=== PATIENT | female | born 1965 | race Caucasian/White ===

== ENCOUNTER 2024-10-08 10:13 | Outpatient (REF) | payer BC, SELFPAY ==
--- OUTSIDE RECORDS SUMMARY | 2024-10-08 11:17 | XMS_ITS | Continuity of Care Document ---
Author Organization [facility] Address [address] [place] [address] [address] [place], [place] Phone [phone] Care Team Providers Care Tubing Machine Tender Name Role Phone Janell Wood Care Team [...]
== END 2024-10-08 10:14 | disposition home or self-care (01) ==
LOC: HO.HOSX 10:13
PROVIDERS: Visit Provider Neurological Surgery
DX: M54.16 Radiculopathy, lumbar region (principal)
CPT/HCPCS: 72110

== ENCOUNTER 2024-10-08 10:13 | Outpatient (AMB) | payer BC, SELFPAY ==
--- OUTSIDE RECORDS SUMMARY | 2024-10-08 10:15 | XMS_ITS | Continuity of Care Document ---
Author Organization [facility] Address [address] [place] [address] [address] [place], [place] Phone [phone] Care Team Providers Care Soil Science Teacher Name Role Phone Janell Wood Care Team Information Receiv er Unavailable ANN MARIE MOSER M.D. Care Team Information Rec eiver Unavailable Janell Wood Primary Care Physician Unava ilable Problems Active Problems Provider Date Benign neoplasm of pituitary gland and craniopharyngeal duct Ann Marie Moser M.D. Onset: 09/24/2017 Social History Type Date Description Comments Sex Unknown Allergies and adverse reactions Active Allergies Criticality Reaction Severity Comments Date Lisinopril Unable to assess criticality Anaphylaxis 09/24/2017 Medications Active Medications SIG Qnty Indications Order ing Provider Date Trazodone HCLTablets Unknown Singulair Unknown HydrochlorothiazideCapsules 1 by mouth every day Unknown Zoe BAKER Part 1 by mouth every day Unknown Calcium + DTablets Unknown 0 ProbioticCapsules 1 by mouth every day Unknown
--- NOTE | 2024-10-08 10:23 | HO.SPINEOV ---
Vital Signs 10/08/24 10:30 Height 5 ft 3 in Weight 180 lb BMI 31.9 Intake Visit Reasons: lbp/spinal stenosis Intake Note: Ms. Barclay is here today c/o low back pain. 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 Allergies lisinopril Allergy (Severe, Verified 10/08/24 10:33) Angioedema morphine Allergy (Severe, Verified 10/08/24 10:33) Hives acetaminophen [From Percocet] Adverse Reaction (Severe, Verified 10/08/24 10:33) hyperness oxycodone [From Percocet] Adverse Reaction (Severe, Verified 10/08/24 10:33) hyperness Physical Exam Vital Signs: BMI result Body Mass Index 31.9 Assessment & Plan Assessment & Plan (1) Lumbar back pain with radiculopathy affecting left lower extremity: Code(s): M54.16 - Radiculopathy, lumbar region Category: Medical Plan: Dear colleague Thank you for referring Holly Barclay to the office today with a chief complaint of predominantly left leg pain. HPI: This 58-year-old female developed low back pain radiating down her left leg on 06/20/2023. The pain became prominent after rotator cuff repair. The pain is situated in the sacral area and bilateral buttocks then radiates constantly down her left leg to the outside of her lower leg and ankle. She has minor numbness down the right leg. Recently she also developed minor pain in the right hip area after moving. The pain is severe in the morning. The pain is independent of walking standing or sitting. Laying in a horizontal position is best for the pain. She denies weakness. She saw a neurosurgeon at [facility] and a neurosurgeon and bringing them women's for this problem. The latter 1 offered her a lumbar decompression but never contacted her. She comes in for 2nd opinion as she recently moved to the area. The following conservative treatment options were tried without success antiinflammatories, tylenol, physical therapy and cortisone shots PMH: Hypertension, fibromyalgia, arthritis, pituitary macroadenoma, ADHD, C-spine fusion, hepatic adenoma removal, , appendectomy, rotator cuff repair Medications: Trazodone, Adderall, Celebrex, Xyzal Allergies: Lisinopril, Percocet Social history: Nonsmoker Physical Exam: Pleasant female. She is in obvious agony. She points to pain in the sacral area and buttocks. Straight leg raise is negative bilaterally. Motor exam is intact. There is mild hypersensitivity over the left lateral thigh. Reflexes are symmetrically intact. No pathological reflexes Radiological Studies: MRI of the lumbar spine done at [facility] on 08/20/2023 shows jqnfqwkw-ga-[id number] spinal stenosis L3-4 with a disc herniation eccentric towards the right side and compressing the right L4 nerve root. In addition there is cyejtkrp-es-eqvbxm L4-5 spinal stenosis with severe lateral recess stenosis on the left side compressing the left L5 nerve root. Standing x-rays today show no instability and no significant deformity. Impression/Plan: This patient is suffering from predominantly left lumbar radiculopathy but also minor findings on the right side. The MRI shows L3-4 and L4-5 spinal stenosis with L3-4 more eccentric towards the right side and L4-5 on the left side. The L3-4 level most likely represents a disc herniation and as the MRI is a year old I would like to repeat the MRI make sure that the abnormality still present as this will influence the surgical plan. The patient will return after the MRI is done. Thank you for allowing me to participate in your patients care. total time spent was 50 minutes in counseling ,coordination of plan, personal review of imaging, surgical decision making and subsequent plan Jorgito Modi MD, PhD Spine Fellowship Trained Neurosurgeon Director, [facility] Orders: Orders XR lumbar spine 4V min Today M54.16 - Radiculopathy, lumbar region MR lumbar spine wo con Today M54.16 - Radiculopathy, lumbar region Coding Level of Care Code New Pt Level 4 (56525) Diagnoses Lumbar back pain with radiculopathy affecting left lower extremity M54.16
[2024-10-08 10:30] VITALS: BMI 31.9
== END 2024-10-08 11:19 | disposition home or self-care (01) ==
LOC: HO.HNS 10:13
PROVIDERS: Visit Provider Neurological Surgery
DX: M54.16 Radiculopathy, lumbar region (principal)
CPT/HCPCS: 99204

== ENCOUNTER 2024-11-07 10:52 | Outpatient (REF) | payer BC, SELFPAY ==
--- NOTE | ~2024-11-07 | MR_ITS ---
EXAMINATION: MR LUMBAR SPINE WITHOUT IV CONTRAST History: M54.16 - Radiculopathy, lumbar region Technique: Sagittal T1, T2 and STIR, and axial T1 and T2 weighted images of the lumbar spine were obtained per departmental protocol. Comparison: Correlation is made with plain films of the lumbar spine dated 10/08/2024. Findings: The vertebral bodies maintain normal height, alignment, and marrow signal intensity. There is mild to moderate degenerative disc disease with disc desiccation and loss of disc height. There is a congenitally narrowed spinal canal. At T12-L1,there is a mild disc bulge. There is no central spinal or neural foraminal stenosis. At L1-2, there is a moderate diffuse disc bulge. There is facet and ligamentum flavum hypertrophy causing moderate to severe central spinal stenosis. There is narrowing of the right neural foramen. At L2-3, there is a moderate disc bulge. There is facet and ligamentum flavum hypertrophy causing severe central spinal stenosis. There is narrowing of the bilateral neural foramen. At L3-4, there is a diffuse moderate disc bulge. There is facet osteoarthritis causing severe central spinal stenosis. There is bilateral neural foraminal narrowing. At L4-5, there is a moderate diffuse disc bulge. There is facet osteoarthritis causing moderate to severe central spinal stenosis and bilateral neural foraminal narrowing. At L5-S1, there is no evidence of disc herniation or central spinal stenosis. There is left facet hypertrophy causing neural foraminal narrowing. The conus terminates at the T12-L1 level and demonstrates normal signal intensity. The visualized paraspinal soft tissues are unremarkable. MR/MR lumbar spine wo con Impression: Congenitally narrowed spinal canal. Mild to moderate degenerative disc disease. There are diffuse disc bulges causing moderate to severe central spinal stenosis at L1-2, severe central spinal stenosis at L2-3 and L3-4, and moderate to severe central spinal stenosis at L4-5. Multilevel neural foraminal narrowing as described. Electronically signed by: Cheng Piedra MD 11/08/2024 02:11 PM [facility]
== END 2024-11-07 10:53 | disposition home or self-care (01) ==
LOC: HO.MRI 10:52
PROVIDERS: Visit Provider Neurological Surgery
DX: M54.16 Radiculopathy, lumbar region (principal)
CPT/HCPCS: 72148

== ENCOUNTER → 2024-11-07 10:57 | Outpatient (BNV) | payer BC, SELFPAY | PROVIDERS: Visit Provider Radiology Diagnostic Radiology | DX: M54.16 Radiculopathy, lumbar region (principal) | CPT/HCPCS: 72148 ==

== ENCOUNTER 2024-11-10 13:48 | Outpatient (AMB) | payer BC, SELFPAY ==
--- NOTE | 2024-11-10 13:49 | A.SPINEOV_ITS ---
Intake Visit Reasons: F/u Mri Results Intake Note: Ms. Barclay is here today to F/u on the results to her MRI. Consultant Internship Required: No Allergies lisinopril Allergy (Severe, Verified 10/08/24 10:33) Angioedema morphine Allergy (Severe, Verified 10/08/24 10:33) Hives acetaminophen [From Percocet] Adverse Reaction (Severe, Verified 10/08/24 10:33) hyperness oxycodone [From Percocet] Adverse Reaction (Severe, Verified 10/08/24 10:33) hyperness Assessment & Plan Assessment & Plan (1) Lumbar back pain with radiculopathy affecting left lower extremity: Code(s): M54.16 - Radiculopathy, lumbar region Category: Medical Plan Dear colleague, On 11/10/2024, I saw for follow-up Holly Barclay to discuss the results of the lumbar MRI. As you know, she suffering from left leg pain. Her last MRI was more than a year old and showed spinal stenosis at L3-4 and L4-5 with an eccen tric disc herniation L3-4 towards the right side. I repeated an MRI that shows improvement of the disc herniation and I would not call the stenosis at L3-4 [id number]. There is significant L4-5 lateral recess stenosis compressing the left L5 nerve root which is compatible with the symptomatology radiating to the outside of her thigh and lower leg. I recommended a left L4-5 laminotomy based on her clinical history and MRI findings. She scheduled for 12/23/2024. She will get clearance from her pipe coverer and insulator who is following her for non secreting macroadenoma. I spent 20 minutes in his consult to discuss the surgical plan and answer questions. Jorgito Modi MD, PhD Spine Fellowship Trained Neurosurgeon Director, [facility] Orders: Referrals Spine Surgery Notification M54.16 - Radiculopathy, lumbar region Coding Level of Care Code Est Pt Level 3 (63625) Diagnoses Lumbar back pain with radiculopathy affecting left lower extremity M54.16
--- OUTSIDE RECORDS SUMMARY | 2024-11-10 15:59 | XMS_ITS | Continuity of Care Document ---
Author Organization [facility] Address [address] [place] [address] [address] [place], [place] Phone [phone] Care Team Providers Care Manager Drilling Name Role Phone Janell Wood Care Team [...]
== END 2024-11-10 14:31 | disposition home or self-care (01) ==
PROVIDERS: Visit Provider Neurological Surgery
DX: M54.16 Radiculopathy, lumbar region (principal)
CPT/HCPCS: 99213

== ENCOUNTER → 2024-11-10 13:48 | Outpatient (BNVA) | payer BC, SELFPAY | PROVIDERS: Visit Provider Neurological Surgery ==

== ENCOUNTER 2024-12-23 08:35 | Day surgery (SDC) | payer BC, SELFPAY ==
[2024-12-09 12:21] VITALS: BP 172/86; PULSE 79; RESP 20; O2SAT 98; BMI 32.1
[2024-12-09 13:42] LABS: Hematocrit 41.7 % (37.0-47.0); Hemoglobin 13.8 g/dl (12.0-16.0); Mean Corpuscular HGB Conc 33.1 g/dl (31.0-35.0); Mean Corpuscular Hemoglobin 29.9 pg (27.0-33.0); Mean Corpuscular Volume 90.5 fL (80.0-98.0); PLT CLUMP 1; Red Blood Count 4.61 X10*6/uL (4.20-5.50); Red Cell Distribution Width 12.7 % (11.0-16.0); White Blood Count 6.5 X10*3/uL (4.8-10.8)
[2024-12-09 14:14] LABS: Mean Platelet Volume 10.6 fL (9.4-12.3); Platelet Count 287 X10*3/uL (160-400)
[2024-12-09 14:43] LABS: Anion Gap 13 (12-20); Blood Urea Nitrogen 16 mg/dL (9-16); Carbon Dioxide 27 mmol/L (22-29); Chloride 106 mmol/L (96-108); Creatinine Clr Calc Pharmacy 96.6; Estimated Glomerular Filt Rate > 60; Glucose Random 82 mg/dL (60-115); Potassium 4.6 mmol/L (3.3-5.1); Sodium 141 mmol/L (135-145)
--- NOTE | ~2024-12-23 | FL_ITS ---
EXAMINATION: FL GUIDANCE ONLY HISTORY: l4-5 laminotomy COMPARISON: None available. TECHNIQUE: Fluoroscopy time: 3.5 seconds. Cumulative Dose: 3.3520 mGy. DAP: 1.1635 mGym2 Images: 1. FINDINGS: A single fluoroscopic spot film of the lumbar spine in the lateral projection demonstrates a probe directed toward the L4-5 intervertebral disc space from a posterior approach. FL/FL guidance in OR IMPRESSION: Fluoroscopy during procedure. Please see procedure report for additional information. Electronically signed by: Cheng Piedra MD 12/24/2024 03:33 PM [facility]
[2024-12-23 09:03] VITALS: BP 143/96; PULSE 81; RESP 15; TEMP 36.2; O2SAT 94
[2024-12-23] MEDS: methocarbamoL 750 MG TABLET PO (09:06)
[2024-12-23] MEDS: Gabapentin 300 MG CAPSULE PO (09:06)
--- NOTE | 2024-12-23 09:19 | MHC.SHP ---
Pre-Procedural Eval Section A - 24 Hr Update-Section A only Date of Service: 12/23/24 The patient is an INPATIENT: No Changes since office visit: No Cold of Flu in the past 2 weeks, No New Medical Problems, No Changes in Medication and No Patient answered all questions Section B - Complete if H&P > 30 days Chief Complaint: Radiculopathy, lumbar region Allergies: Allergies Allergy/AdvReac Type Severity Reaction Status Date / Time CASSY Inhibitors Allergy Severe Angioedema-hospitalized Verified 12/23/24 08:52 in medical induced coma bee pollen [bee stings] Allergy Severe Swelling Verified 12/23/24 08:52 morphine Allergy Severe Hives Verified 12/23/24 08:52 hydromorphone Allergy Intermediate insomnia/hyperactivity/hot Verified 12/23/24 08:52 &/or cold flashes oxycodone [From Percocet] AdvReac Severe hyperactivi Verified 12/23/24 08:52 ty clonidine AdvReac Intermediate extreme Verified 12/23/24 08:52 fatigue Estrogens AdvReac Intermediate ? caused Verified 12/23/24 08:52 hepatic adenoma Review of Systems Sugical H&P ROS: Negative: Constitution, Cardiovascular, Respiratory, Neurological, Psychiatric, Hem-Onc, Allergic/Immunologic, Gastrointestinal, Genitourinary, Musculoskeletal, Integumentary, Endocrine and Eyes/Ears/Nose/Throat Exam Surgical H&P Exam: Normal: HEENT, Normal: Heart, Normal: Lungs, Normal: Extremities, Normal: Abdomen, Normal: Skin and Normal: Neurological (Awake, alert) Plan Diagnosis/Plan: Unchanged I have reviewed the history and physical and performed a pertinent physical examination on my patient. No changes have occurred unless specified. Left L4-5 laminotomy Time Spent With Patient Time: Total time managing care of this patient today _5___ minutes.
[2024-12-23] MEDS: Lactated Ringers 1,000 ML 100 ML IVCONT (09:23)
--- NOTE | 2024-12-23 09:26 | P.DS_ITS ---
DS: Providers Provider Date of Service: 12/23/24 Date of discharge: 12/23/24 Primary care physician: Unknown Physician Admitting clinician: Jorgito Modi DS: Diagnosis Discharge Diagnosis (1) Lumbar back pain with radiculopathy affecting left lower extremity: Status: Acute DS: Summary Time Attestation Discharge Coordination Time (in mins): 6 Quality: Safe Use of Opioids Does Pt have an Active Cancer Diagnosis on the Problem List?: No Quality: Stroke Does the patient have a stroke diagnosis?: No Physical Exam Vital Signs: Vital Signs: Last Vital Signs Temp 97.2 F 12/23/24 09:03 Pulse 81 12/23/24 09:03 Resp 15 12/23/24 09:03 BP 143/96 H 12/23/24 09:03 Pulse Ox 94 12/23/24 09:03 O2 Del Method Room Air 12/23/24 09:03 BMI result Body Mass Index 32.1 Discharge Plan Discharge Patient Disposition: Home, Self-Care Referrals: Physician,Unknown J [Primary Care Provider] - 1 Week Discharge Medications: New tramadol 50 mg tablet 50 mg PO Q6H PRN (Reason: pain) Qty: 20 0RF Continued celecoxib 200 mg capsule 200 mg PO QAM trazodone 50 mg tablet 50 mg PO BEDTIME dextroamphetamine-amphetamine 5 mg tablet 10 mg PO QAM Rx Instructions: and 5 mg po @ bedtime cholecalciferol (vitamin D3) [Vitamin D3] 25 mcg (1,000 unit) Capsule 25 mcg PO QAM levocetirizine [Xyzal] 5 mg Tablet 5 mg PO QPM cyanocobalamin (vitamin B-12) [Vitamin B-12] 1,000 mcg Tablet 1,000 mcg PO DAILY Discharge Orders: Discharge Order (Routine); Ordered 12/23/24 Ordered By: Fran Nazario Diet: Advance to usual diet Activity on Discharge: As tolerated Activity Restrictions/Additional Instructions: After your spinal surgery we ask you to observe the following restrictions/guidelines: Activity: It is normal to feel some discomfort as you increase your activity, but that will improve with time. We ask you avoid heavy lifting or acitivities that cause pain. As a general rule, 8lbs is a safe limit for lifting right after surgery. Walk as much as you feel comfortable but not to exhaustion. You will feel extra tired the first few days after surgery. Stay well hydrated. It is OK to walk up and down stairs You may return to driving when you are off narcotics (such as vicodin, oxycodone, dilaudid, etc), and you are back to normal functional capacity. If you have any concerns please check with office before driving. Return to work is specific to each patient and each surgery, so please speak with your doctor/PA at first follow up. Please bring paperwork such as FMLA at that time if you need it filled out. Medications: For optimum pain control, it is best to start with a combination of 500 mg of Tylenol every 4 hours with 600 mg of Motrin every 8 hours, and use narcotics as needed in between for breakthrough pain. We will give you a short supply of narcotics after surgery (usually one weeks worth). If you need more please call the office but do not use more than prescribed. You will need to give our office 48 hours notice if you need narcotics refilled and we do not fill narcotics on weekends or evenings. If you are on a narcotic, it is a good idea to take a stool softener such as colace or senna to avoid constipation If you take blood thinner such as aspirin, Plavix, Coumadin, Effient, Eliquis etc for conditions such as Afib, DVT, Pulmonary embolus, coronary disease, stents etc please speak with your surgeon about specific details as to when you can resume these medications. You can resume NSAIDs on post op day 1 (eg: Motrin, Naproxen, etc). Follow up: Please call the office, , after surgery to arrange a 3 week follow up for wound check. Wound Care: You may remove your dressing on the first day after surgery. ?You may ?leave open to air. Please do not remove the steri strips underneath. they will fall off on their own in one week. IT IS NORMAL FOR THE WOUND TO OOZE OR BE BLOODY FOR A FEW DAYS AFTER SURGERY. ?IF THIS HAPPENS JUST PLACE NEW DRESSING OVER IT TO AVOID STAINING CLOTHES. You may shower on post op day # 1 We ask that you do not let the water soak the wound. If it does get wet, just towel dry lightly. Please do not scrub your incision or place any type of chemical/ointment on the wound. No tub baths, pools or jacuzzis for one month. If you have any leaking or redness from your wound, or fevers, please call office Print Language: [place]
--- NOTE | 2024-12-23 09:27 | P.CONAN_ITS ---
Documented by User: Zunilda Garvin NP 12/22/24 12:45 HPI - Anesthesia Eval Consult details Narrative: 59yo F for Left L4-5 Laminotomy 12/09/[address] Friedman Follows [facility] for pituitary macroadenoma. OK'd to proceed with surgery Follows cardiology on [facility] ([facility] to [facility]) for HTN. Last visit 06/2024. [facility] Active Problems Active Problems: All Active Problems (Updated 12/09/24 @ 13:13 by Autumn Desai RN) Lumbar back pain with radiculopathy affecting left lower extremity (Acute) Past Medical History Medical History Pituitary macroadenoma Basal cell carcinoma Hepatic adenoma ADHD (attention deficit hyperactivity disorder) Fibromyalgia Arthritis HTN (hypertension) Surgical History Surgical History H/O colonoscopy Hx of hemorrhoidectomy History of carpal tunnel release Hx of rotator cuff surgery Hx of appendectomy Hx of section History of surgery of liver Hx of cervical spine surgery Social History Social History Are you a primary youth care professional to a significant other at home: No Do you presently have visiting nurse or other home services: No Patient Tobacco Use Status: Current someday Tobacco user Tobacco use type: Cigarette Cigarettes Per Day: 0 Years Smoked: smokes on occasion-total of one year over the last 25 years Use of substances other than those prescribed or required for medical reasons: No Substance Use Type Other:: CBD gummies for pain Have you been hit, kicked, punched, or otherwise hurt by someone within the past year? If so, by whom?: No Spiritual Healthcare Practices: none Judaism Healthcare Practices: none Cultural Healthcare Practices: none Are you DNR?: No Advance Directives: Yes Advance Directives Information Provided: Yes Advance Directives on File: Yes Advance Directives Date on File: 12/09/24 Recently lost weight without trying: No Eating poorly because of decreased appetite: No Nutrition Risks: No Nutritional Risk FDLMP: 2021 Poor oral hygiene: No Meds Allergies Allergy/AdvReac Type Severity Reaction Status Date / Time CASSY Inhibitors Allergy Severe Angioedema-hospitalized Verified 12/23/24 08:52 in medical induced coma bee pollen [bee stings] Allergy Severe Swelling Verified 12/23/24 08:52 morphine Allergy Severe Hives Verified 12/23/24 08:52 hydromorphone Allergy Intermediate insomnia/hyperactivity/hot Verified 12/23/24 08:52 &/or cold flashes oxycodone [From Percocet] AdvReac Severe hyperactivi Verified 12/23/24 08:52 ty clonidine AdvReac Intermediate extreme Verified 12/23/24 08:52 fatigue Estrogens AdvReac Intermediate ? caused Verified 12/23/24 08:52 hepatic adenoma Home Medications ?Medication ?Instructions ?Recorded ?Confirmed ?Last Taken ?Type celecoxib 200 mg capsule 200 mg PO QAM 12/08/24 12/09/24 12/16/24 History cholecalciferol (vitamin D3) 25 25 mcg PO QAM 12/08/24 12/09/24 Unknown History mcg (1,000 unit) capsule (Vitamin D3) dextroamphetamine-amphetamine 5 mg 10 mg PO QAM 12/08/24 12/09/24 Unknown History tablet levocetirizine 5 mg tablet (Xyzal) 5 mg PO QPM 12/08/24 12/09/24 Unknown History trazodone 50 mg tablet 50 mg PO BEDTIME 12/08/24 12/09/24 Unknown History cyanocobalamin (vitamin B-12) 1,000 mcg PO DAILY 12/09/24 12/09/24 Unknown History 1,000 mcg tablet (Vitamin B-12) Exam Height,Weight and Vital Signs: Height 5 ft 3 in Weight 82.2 kg Last Vital Signs Pulse 79 12/09/24 12:21 Resp 20 12/09/24 12:21 BP 172/86 H 12/09/24 12:21 Pulse Ox 98 12/09/24 12:21 O2 Del Method Room Air 12/09/24 12:21 Pertinent Lab Results Pertinent Lab Results: Laboratory Tests 12/09/24 13:26 WBC 6.5 RBC 4.61 Hgb 13.8 Hct 41.7 MCV 90.5 MCH 29.9 MCHC 33.1 RDW 12.7 Plt Count 287 MPV 10.6 Absolute Nucleated RBC 0.000 Nucleated RBC % (auto) 0.0 Sodium 141 Potassium 4.6 Chloride 106 Carbon Dioxide 27 Anion Gap 13 BUN 16 Creatinine 0.66 Estim Creat Clear Calc 96.6 Estimated GFR > 60 Random Glucose 82 Calcium 10.0 Narrative Narrative: EKG 06/2024 Sinus Tach ECHO 2022 LA nml in size Mild mitral regurg AV trileaflet Trace tricuspid regurg Estimated RSVP 22mmHg LV sys function nml RWM of LV nml EF 60-65% Assessment and Plan Assessment Anesthesia Assessment: Chart Reviewed Documented by User: Jennifer Brown, 12/23/24 09:29 PMFSH Past Medical History Medical History Pituitary macroadenoma Basal cell carcinoma Hepatic adenoma ADHD (attention deficit hyperactivity disorder) Fibromyalgia Arthritis HTN (hypertension) Family History Family history of problems with anesthesia: No Surgical History Surgical History H/O colonoscopy Hx of hemorrhoidectomy History of carpal tunnel release Hx of rotator cuff surgery Hx of appendectomy Hx of section History of surgery of liver Hx of cervical spine surgery History of Problems with Anesthesia: No Social History Social History Are you a primary youth care professional to a significant other at home: No Do you presently have visiting nurse or other home services: No Patient Tobacco Use Status: Current someday Tobacco user Tobacco use type: Cigarette Cigarettes Per Day: 0 Years Smoked: smokes on occasion-total of one year over the last 25 years Use of substances other than those prescribed or required for medical reasons: No Substance Use Type Other:: CBD gummies for pain Have you been hit, kicked, punched, or otherwise hurt by someone within the past year? If so, by whom?: No Spiritual Healthcare Practices: none Judaism Healthcare Practices: none Cultural Healthcare Practices: none Are you DNR?: No Advance Directives: Yes Advance Directives Information Provided: Yes Advance Directives on File: Yes Advance Directives Date on File: 12/09/24 Recently lost weight without trying: No Eating poorly because of decreased appetite: No Nutrition Risks: No Nutritional Risk FDLMP: 2021 Poor oral hygiene: No Meds Allergies Allergy/AdvReac Type Severity Reaction Status Date / Time CASSY Inhibitors Allergy Severe Angioedema-hospitalized Verified 12/23/24 08:52 in medical induced coma bee pollen [bee stings] Allergy Severe Swelling Verified 12/23/24 08:52 morphine Allergy Severe Hives Verified 12/23/24 08:52 hydromorphone Allergy Intermediate insomnia/hyperactivity/hot Verified 12/23/24 08:52 &/or cold flashes oxycodone [From Percocet] AdvReac Severe hyperactivi Verified 12/23/24 08:52 ty clonidine AdvReac Intermediate extreme Verified 12/23/24 08:52 fatigue Estrogens AdvReac Intermediate ? caused Verified 12/23/24 08:52 hepatic adenoma Home Medications ?Medication ?Instructions ?Recorded ?Confirmed ?Last Taken ?Type celecoxib 200 mg capsule 200 mg PO QAM 12/08/24 12/09/24 12/16/24 History cholecalciferol (vitamin D3) 25 25 mcg PO QAM 12/08/24 12/09/24 Unknown History mcg (1,000 unit) capsule (Vitamin D3) dextroamphetamine-amphetamine 5 mg 10 mg PO QAM 12/08/24 12/09/24 Unknown History tablet levocetirizine 5 mg tablet (Xyzal) 5 mg PO QPM 12/08/24 12/09/24 Unknown History trazodone 50 mg tablet 50 mg PO BEDTIME 12/08/24 12/09/24 Unknown History cyanocobalamin (vitamin B-12) 1,000 mcg PO DAILY 12/09/24 12/09/24 Unknown History 1,000 mcg tablet (Vitamin B-12) Exam Exam Date and Time: 12/23/2428 Height,Weight and Vital Signs: Height 5 ft 3 in Weight 82.2 kg Last Vital Signs Pulse 79 12/09/24 12:21 Resp 20 12/09/24 12:21 BP 172/86 H 12/09/24 12:21 Pulse Ox 98 12/09/24 12:21 O2 Del Method Room Air 12/09/24 12:21 Vital Signs Pulse Rate 79 12/09/24 12:21 Respiratory Rate 20 12/09/24 12:21 Blood Pressure 172/86 H 12/09/24 12:21 Pulse Oximetry 98 12/09/24 12:21 Oxygen Delivery Method Room Air 12/09/24 12:21 Temperature 97.2 F 12/23/24 09:03 Pulse Rate 81 12/23/24 09:03 Respiratory Rate 15 12/23/24 09:03 Blood Pressure 143/96 H 12/23/24 09:03 Pulse Oximetry 94 12/23/24 09:03 Oxygen Delivery Method Room Air 12/23/24 09:03 Airway Mallampati Class: II TM Dist: >3cm Neck ROM: Full Loose/Missing/Broken Teeth: No (patient denies any loose or broken teeth) Heart: S1S2 Lungs: CTAB Assessment and Plan Assessment Anesthesia Assessment: Anesthesia Plan Discussed and Chart Reviewed Final Anesthetic Review Family History of Problems with Anesthesia: No History of Problems with Anesthesia: No NPO: Yes ASA Class: II Final Preanesthetic Review: No Changes in Pt Med Stat, Meds/Allgs Chart Reviewed, Consent Obtained/Reviewed and Anes Risks/Benef Reviewed Patient Risk: Low Procedure Risk: Low Anesthetic Plan Anesthetic Plan: GA and Agree w/ Assess. and Plan Disposition: Standard PACU
[2024-12-23] MEDS: Acetaminophen 1,000 MG/100 ML PIGGYBACK 400 MG IV (10:10)
[2024-12-23] MEDS: ceFAZolin Sodium/Dextrose,Iso 2 GM/50 ML PIGGYBACK IV (10:10)
[2024-12-23 11:39] VITALS: BP 144/70; PULSE 90; RESP 12; TEMP 36.1; O2SAT 97
[2024-12-23 11:44] VITALS: BP 144/70; PULSE 101; RESP 12; O2SAT 97
[2024-12-23 11:49] VITALS: BP 162/84; PULSE 107; RESP 12; O2SAT 96
[2024-12-23 11:54] VITALS: PULSE 99; RESP 16; O2SAT 95
[2024-12-23 12:09] VITALS: BP 146/78; PULSE 96; RESP 18; TEMP 36.3; O2SAT 98
--- NOTE | 2024-12-24 16:20 | W.PM.OPN ---
Operative Note Operative Note Date of Service: 12/23/24 Narrative: Preoperative Diagnosis: L4-5 spinal stenosis/lateral recess stenosis/neural foraminal stenosis Operation: L4-5 Laminotomy, Partial facetectomy and foraminotomy with use of microscope Consent Informed Consent was obtained for this operation. I have explained the nature, purpose and benefits of the operation. I have discussed the risks and benefit of the operation including possible complications or adverse events with patient/family. Alternative(s) were discussed with the patient with their relative benefits and risks as well as the consequences of not accepting the operation were included in obtaining consent. Surgeon: ANSELMO VILLALPANDO MD, PHD Procedure Assisted By: Fran Jones Description of Procedure This patient is suffering from predominantly left neurogenic claudication symptoms due to L4-5 central stenosis. The patient was offered a decompression. The procedure complications were explained. The patient was consented. The patient was brought to the operating room and endotracheally intubated. The patient was turned in prone position on the Adama frame. Prep and drape was done followed by timeout. The Physician occupational therapist assistant provided access. A mid lumbar incision was made followed by release of the paravertebral muscle on the left side to expose the L4-5 lamina and facet joints. An intraoperative x-ray was obtained to confirm the correct level. The microscope was brought in. I took over the procedure. The high-speed drill was used to do a left L4-5 laminotomy until flavum ligament was reached. A #2 Kerrison was used to expand the laminotomy near flush to the pedicles and to include a partial facetectomy. The flavum ligament was opened and resected with a #3 Kerrison to decompress the underlying thecal sac. The flavum ligament was removed to decompress the lateral recess and the exiting L5 nerve root. Accordingly, the patient was turned contralaterally peers the spinous process was undercut and then flavum ligament was resected from the contralateral side. A long nerve hook could be easily passed along the medial side of the pedicles as a sign of adequate decompression. The microscope was removed. Hemostasis was done. The physician occupational therapist assistant close the Incision in 2 layers. Steri-Strips were used to approximate incision. An OpSite with Tegaderm was used to cover the incision. All sponge needle counts were correct. Patient was extubated and transported in stable is to recovery room. Anesthesia: General Estimated Blood Loss (ml): 20 Complications: None Duration of Surgery: Under 60 Minutes Postoperative Plan: Discharge to home
== END 2024-12-23 13:15 | disposition home or self-care (01) ==
PROVIDERS: Anesthesiology; Visit Provider Neurological Surgery
PROC: (CPT 63047; principal; 2024-12-23 10:30)
DX: M48.062 Spinal stenosis, lumbar region with neurogenic claudication (principal); M54.16 Radiculopathy, lumbar region; M79.7 Fibromyalgia; M19.90 Unspecified osteoarthritis, unspecified site; I10 Essential (primary) hypertension; D35.2 Benign neoplasm of pituitary gland; Z79.899 Other long term (current) drug therapy; Z88.5 Allergy status to narcotic agent; Z88.8 Allergy status to other drugs, medicaments and biological substances; Z98.890 Other specified postprocedural states; F17.210 Nicotine dependence, cigarettes, uncomplicated
CPT/HCPCS: 63047; 36415; 80048; 85027; J0131; J0690; J1100; J1885; J2003; J2250; J2405; J2704; J3010

== ENCOUNTER → 2024-12-23 08:35 | Outpatient (BNV) | payer BC, SELFPAY | PROVIDERS: Visit Provider Physician Assistant | DX: M54.16 Radiculopathy, lumbar region (principal) | CPT/HCPCS: 99499 ==

== ENCOUNTER 2025-01-13 10:37 | Outpatient (AMB) | payer BC, SELFPAY ==
--- NOTE | 2025-01-13 10:38 | HO.SPINEOV ---
Intake Visit Reasons: 1st post op Intake Note: Ms. Barclay is here today for her 1st post op. Training And Development Head Required: No Allergies CASSY Inhibitors Allergy (Severe, Verified 01/13/25 10:38) Angioedema-hospitalized in medical induced coma bee pollen [bee stings] Allergy (Severe, Verified 01/13/25 10:38) Swelling morphine Allergy (Severe, Verified 01/13/25 10:38) Hives hydromorphone Allergy (Intermediate, Verified 01/13/25 10:38) insomnia/hyperactivity/hot &/or cold flashes oxycodone [From Percocet] Adverse Reaction (Severe, Verified 01/13/25 10:38) hyperactivity clonidine Adverse Reaction (Intermediate, Verified 01/13/25 10:38) extreme fatigue Estrogens Adverse Reaction (Intermediate, Verified 01/13/25 10:38) ? caused hepatic adenoma Assessment & Plan Assessment & Plan (1) Lumbar back pain with radiculopathy affecting left lower extremity: Code(s): M54.16 - Radiculopathy, lumbar region Category: Medical Plan Procedure: L4-5 Laminotomy, Partial facetectomy and foraminotomy Holly is a pleasant 59 year old female who underwent L4-[address] Modi on 12/24/24. To recap she was initially seen in clinic for low back pain radiating down her left leg. She reports that her symptoms are overall better than they were prior to surgery, but she is still concerned that she has some shooting pains down her left lower extremity that will randomly ?flare up. We discussed the postoperative healing course, and I answered all questions to the best of my ability. She is likely suffering from some postoperative inflammation, and her symptoms will most likely continue to improve in the coming weeks. She is completing her ADLs without issue, and has been doing stretching exercises at home. No new neurological deficits. The patient ambulates well and rises from a seated position without difficulty. Her posterior incision site is closed and well healing with no signs of drainage. I would like to follow up with Holly again in 6 weeks for her 2nd postoperative visit. Gulshan Modi MD,PhD [facility] Coding Level of Care Code Global (94065) Diagnoses Lumbar back pain with radiculopathy affecting left lower extremity M54.16
--- OUTSIDE RECORDS SUMMARY | 2025-01-13 13:50 | XMS_ITS | Encounter Summary ---
Author Organization [facility] Address [address] [place] [address] Phone Care Team Providers Care Logging Crew Foreman Name Role Phone Pebbles Keith PIPE FITTER APPRENTICE Unavailable Pebbles Keith PIPE FITTER APPRENTICE Primary Care Provider Agustina Pino KITCHEN RUNNER Primary Care Provider Ana Al Unavailable Encounter Details Date Type Department Care Team (Late st Contact Info) Description 06/11/2024 Procedure Pass [facility] [address] [place] [address] Social History Tobacco Use Types Packs/Day Years Used Date Smoking Tobacco: Never Smokeless Tobacco: Never Alcohol Use Standard Drinks/Week Comments Yes 3 (1 standard drink = 0.6 oz pur e alcohol) 8 drinks/week Child or Family Care Answer Date Record ed Do you have problems with on e of the following making it difficult for you to work, study, or receive health care? No 01/16/2024 Education Answer Date Recorded Are you interested in help w ith more adult education (for example, completing high school, GED, job training, learning the Mongolian language, technical skills, or developing parenting skills)? No 01/16/2024 Are you concerned about learning? Not on file 01/16/2024 No 01/16/2024 Yes 01/16/2024 Food Answer Date Recorded Within the past 6 months we worried whether our food would run out before we got money to buy more. Never True 01/16/2024 Within the past 6 months the food we bought just didn't last and we didn't have enough money to get more. Never True Residential Stability Answer Date Recor ded What is your housing situation today? I have ramona sing 01/16/2024 How many times have you move d in the past 12 months? Zero (I did not move) 01/16/2024 Paying for Meds Answer Date Recorded Do you have trouble paying for medicines? No 01/16/2024 Paying Utility Bills Answer Date Record ed Do you have trouble paying your heating or elect ricity bill? No 01/16/2024 Transportation Answer Date Recorded Has the lack of transportati on kept you from medical appointments or from getting medications? No 01/16/2024 Digital Access Answer Date Recorded No 01/16/2024 Yes 01/16/2024 Do you have reliable internet access at home? Ye s 01/16/2024 Do you have a device (e.g., phone, tablet, computer) with a working camera? Yes 01/16/2024 Intimate Partner Violence Answer Date R ecorded Are you denied basic needs s uch as food, clothing, or medical care? No 06/14/2024 In the past 12 months have y ou been in a relationship with a person who hurts, threatens, or tries to control you? No 06/14/2024 Are you denied basic needs s uch as food, clothing, or medical care? No 06/14/2024 In the past 12 months have y ou been in a relationship with a person who hurts, threatens, or tries to control you? No 06/14/2024 Sex and Gender Information Value Date Recorded Sex Assigned at Female 04/02/2020 1:18 PM EDT Gender Identity Female 04/02/2020 1:18 PM EDT Sexual Orientation Straight 04/02/2020 1: 18 PM EDT documented as of this encounter Plan of Treatment Upcoming Encounters Date Type Department Care Team (Late st Contact Info) Description 11/15/2025 2:00 PM EST Office Visit [facility] [address] [place] [address] Manfred Torres MD, DSc [address], [address] [place] [address] [email or web address] documented as of this encounter Visit Diagnoses Not on filedocumented in this encounter Additional Health Concerns Assessment Noted Time PHQ-9 Depression Total Score: 1 01/23/20 9:31 AM EDT PHQ-2 Depression Total Score: 1 01/23/20 9:31 AM EDT documented as of this encounter Care Teams Logging Crew Foreman Relationship Specialty Start Date End Date Pebbles Keith NP [address] [place] [phone] [email or web address] PCP - General Nurse Practitioner 12/17/23 07/18/24 Agustina Pino CNP [address] [place] [phone] [email or web address] PCP - General Internal Medicine 07/19/24 Pebbles Keith NP [address] [place] [phone] [email or web address] Insurance Assigned Provider 01/24/24 07/18/24 Ana Al MBBS [address] [place] [phone] [email or web address] 08/10/24 documented as of this encounter Additional Source Comments The information contained in this document represents components of the legal health record. It is not the complete legal health record.[facility]
--- OUTSIDE RECORDS SUMMARY | 2025-01-13 13:50 | XMS_ITS | Encounter Summary ---
Author Organization [facility] Address [address] [place] [address] Phone Care Team Providers Care Test Car Driver Name Role Phone Janell Wood MD Unavailable Pebbles Keith NP Primary Care Provider [phone] Pebbles Keith NP Unavailable Pebbles Keith PAPERHANGER AND PAINTER Primary Care Provider [phone] Agustina Pino CNP Primary Care Provider [phone] Ana Al Unavailable Encounter Details Date Type Department Care Team (Late st Contact Info) Description 08/06/2022 Procedure Pass [facility] Imaging - Mammo [address] [place] [address] Social History Tobacco Use Types Packs/Day Years Used Date Smoking Tobacco: Never Smokeless Tobacco: Never Alcohol Use Standard Drinks/Week Comments Yes 3 (1 standard drink = 0.6 oz pur e alcohol) Sex and Gender Information Value Date Recorded Sex Assigned at Female 04/02/2020 1:18 PM EDT Gender Identity Female 04/02/2020 1:18 PM EDT Sexual Orientation Straight 04/02/2020 1: 18 PM EDT documented as of this encounter Plan of Treatment Upcoming Encounters Date Type Department Care Team (Late st Contact Info) Description 11/15/2025 2:00 PM EST Office Visit [facility] [address] [place] [address] Manfred Torres MD, DSc [address], [address] [place] [address] [email or web address] documented as of this encounter Visit Diagnoses Not on filedocumented in this encounter Additional Health Concerns Infection Onset Date Last Indicated Resolved Time CoV-Risk 10/30/2022 10/30/2022 11/10/2022 1:22 AM EST Assessment Noted Time PHQ-2 Depression Total Score: 0 08/03/20 1:42 PM EDT documented as of this encounter Care Teams Test Car Driver Relationship Specialty Start Date End Date Pebbles Keith NP [address] [place] [phone] PCP - General Nurse Practitioner 08/06/22 12/16/23 Pebbles Keith NP [address] [place] [phone] PCP - General Nurse Practitioner 12/17/23 07/18/24 Agustina Pino CNP [address] [place] [phone] PCP - General Internal Medicine 07/19/24 Janell Wood MD [address] [place] [phone] [email or web address] Insurance Assigned Provider 06/20/18 11/23/22 Pebbles Keith NP [address] [place] [phone] [email or web address] Insurance Assigned Provider 01/24/24 07/18/24 Ana Al MBBS [address] [place] [address] [email or web address] 08/10/24 documented as of this encounter Additional Source Comments The information contained in this document represents components of the legal health record. It is not the complete legal health record.[facility]
--- OUTSIDE RECORDS SUMMARY | 2025-01-13 13:50 | XMS_ITS | Encounter Summary ---
Author Organization [facility] Address [address] [facility] [address] [place] [address] Phone Care Team Providers Care Pneumatic Jack Operator Name Role Phone Pebbles Keith CORPORATE GENERAL MANAGER Unavailable [phone] Pebbles Keith CORPORATE GENERAL MANAGER Primary Care Provider Agustina Pino CARBONATION TESTER Primary Care Provider [phone] Ana Al Unavailable [phone] Encounter Details Date Type Department Care Team (Late st Contact Info) Description 06/04/2024 Ancillary Orders [facility] [address] [address] Ana Al MBBS [address] [place] [address] [email or web address] Other chronic pain (Primary Dx) Social History Tobacco Use Types Packs/Day Years [...] high school, GED, job training, learning the [place] language, technical skills, or developing parenting skills)? [...] computer) with a working camera? Yes 01/16/2024 Sex and Gender Information Value Date Recorded Sex Assigned at Female 04/02/2020 1:18 PM EDT Gender Identity Female 04/02/2020 1:18 PM EDT Sexual Orientation Straight 04/02/2020 1: 18 PM EDT documented as of this encounter Plan of Treatment Upcoming Encounters Date Type Department Care Team (Late st Contact Info) Description 11/15/2025 2:00 PM EST Office Visit [address] [place] [address] Manfred Torres MD, DSc [address] [facility], [address] [place] [address] [email or web address] Pending Results Name Type Priority Associated Diagnoses Date /Time [place] Fluoroscopy Guidance - No Charge Imaging Routine Other chronic pain 06/11/2024 2:13 PM EDT Scheduled Orders Name Type Priority Associated Diagnoses Orde r Schedule [place] Fluoroscopy Guidance - No Charge Imaging Routine Other chronic pain Expected: 06/11/2024, Expires: 09/04/2024 documented as of this encounter Visit Diagnoses Diagnosis Other chronic pain- Primary documented in this encounter Additional Health Concerns Assessment Noted Time PHQ-9 Depression Total Score: 1 01/23/20 9:31 AM EDT PHQ-2 Depression Total Score: 1 01/23/20 9:31 AM EDT documented as of this encounter Care Teams Pneumatic Jack Operator Relationship Specialty Start Date End Date Pebbles Keith NP [address] [place] [address] [email or web address] PCP - General Nurse Practitioner 12/17/23 07/18/24 Agustina Pino CNP [address] [place] [phone] PCP - General Internal Medicine 07/19/24 Pebbles Keith CORPORATE GENERAL MANAGER [address] [place] [phone] Insurance Assigned Provider 01/24/24 07/18/24 Ana Al MBBS [address] [place] [address] [email or web address] Pain Medicine 08/10/24 documented as of this encounter Additional Source Comments The information contained in this document represents components of the legal health record. It is not the complete legal health record.[facility]
--- OUTSIDE RECORDS SUMMARY | 2025-01-13 13:50 | XMS_ITS | Encounter Summary ---
Author Organization [facility] Address [address] [facility] [address] [place] [address] Phone Care Team Providers Care Hotel Reservation Agent Name Role Phone Pebbles Keith SOLID STATE TESTER Primary Care Provider Pebbles Keith SOLID STATE TESTER Unavailable Pebbles Keith SOLID STATE TESTER Primary Care Provider Agustina Pino CNP Primary Care Provider Ana Al MBBS Unavailable [phone] Encounter Details Date Type Department Care Team (Latest Contact Info) Description 02/05/2023 Ancillary Orders [facility] Cardiac Echo [address] [place] [address] Rell Washington MD [address] [place] [address] Essential hypertension Social History Tobacco Use Types Packs/Day Years [...] Description 11/15/2025 2:00 PM EST Office Visit [facility] [address] [facility], [address] [place] [address] Manfred Torres MD, DSc 100 [facility], [address] [place] [address] [email or web address] documented as of this encounter Visit Diagnoses Diagnosis Essential hypertension Unspecified essential hypertension documented in this encounter Additional Health Concerns Assessment Noted Time PHQ-2 Depression Total Score: 0 08/03/20 1:42 PM EDT documented as of this encounter Care Teams Hotel Reservation Agent Relationship Specialty Start Date End Date Pebbles Keith NP [email or web address] PCP - General Nurse Practitioner 08/06/22 12/16/23 Pebbles Keith NP [address] [place] [address] PCP - General Nurse Practitioner 12/17/23 07/18/24 Agustina Pino CNP [address] [place] [address] PCP - General Internal Medicine 07/19/24 Pebbles Keith NP [address] [place] [phone] Insurance Assigned Provider 01/24/24 07/18/24 Ana Al MBBS [address] [place] [address] [email or web address] Pain Medicine 08/10/24 documented as of this encounter Additional Source Comments The information contained in this document represents components of the legal health record. It is not the complete legal health record.[facility]
--- OUTSIDE RECORDS SUMMARY | 2025-01-13 13:50 | XMS_ITS | Encounter Summary ---
Author Organization [facility] Address [address] [facility] [address] [place] [address] Phone Care Team Providers Care Quirk Sander Name Role Phone Pebbles Keith BREAKFAST COOK Primary Care Provider Pebbles Keith BREAKFAST COOK Unavailable Pebbles Keith BREAKFAST COOK Primary Care Provider Agustina Pino CNP Primary Care Provider Ana Al MBBS Unavailable Encounter Details Date Type Department Care Team (Late st Contact Info) Description 10/06/2023 Procedure Pass [facility] Imaging - MR [address] [place] [address] Social History Tobacco Use Types Packs/Day Years Used Date Smoking Tobacco: Never Smokeless Tobacco: Never Alcohol Use Standard Drinks/Week Comments Yes 3 (1 standard drink = 0.6 oz pur e alcohol) 8 drinks/week Education Answer Date Recorded Are you interested in more education? Not on shilpa e 02/14/2023 Are you concerned about learning? Not on file 02/14/2023 No 02/14/2023 No 02/14/2023 Digital Access Answer Date Recorded No 03/11/2023 No 03/11/2023 Reliable internet access at home? Not on file 03/11/2023 Device with a working camera? Not on file Sex and Gender Information Value Date Recorded Sex Assigned at Female 04/02/2020 1:18 PM EDT Gender Identity Female 04/02/2020 1:18 PM EDT Sexual Orientation Straight 04/02/2020 1: 18 PM EDT documented as of this encounter Plan of Treatment Upcoming Encounters Date Type Department Care Team (Late st Contact Info) Description 11/15/2025 2:00 PM EST Office Visit [address] [place] [address] Manfred Torres MD, DSc 100 [facility], [address] [place] [address] [email or web address] documented as of this encounter Visit Diagnoses Not on filedocumented in this encounter Additional Health Concerns Assessment Noted Time PHQ-2 Depression Total Score: 0 08/03/20 22 1:42 PM EDT documented as of this encounter Care Teams Quirk Sander Relationship Specialty Start Date End Date Pebbles Keith NP [email or web address] PCP - General Nurse Practitioner 08/06/22 12/16/23 Pebbles Keith NP [address] [place] [address] PCP - General Nurse Practitioner 12/17/23 07/18/24 Agustina Pino CNP [address] [place] [address] [email or web address] PCP - General Internal Medicine 07/19/24 Pebbles Keith NP [address] [place] [phone] [email or web address] Insurance Assigned Provider 01/24/24 07/18/24 Ana Al MBBS [address] [place] [address] [email or web address] Pain Medicine 08/10/24 documented as of this encounter Additional Source Comments The information contained in this document represents components of the legal health record. It is not the complete legal health record.[facility]
--- OUTSIDE RECORDS SUMMARY | 2025-01-13 13:50 | XMS_ITS | Encounter Summary ---
Author Organization [facility] Address [address] [facility] [address] [place] [address] Phone Care Team Providers Care Biztalk Architect Name Role Phone Amrita Carranza Primary Care Provider + Janell Wood MD Unavailable Inge Olsen [facility] Unavailable [phone] Azra Blakely CONDUCTOR SLEEPING CAR Primary Care Provider Pebbles Keith CONDUCTOR SLEEPING CAR Primary Care Provider Pebbles Keith CONDUCTOR SLEEPING CAR Unavailable [phone] Pebbles Keith CONDUCTOR SLEEPING CAR Primary Care Provider [phone] Agustina Pino LAVATORY ATTENDANT Primary Care Provider [phone] Ana Al MBBS Unavailable [phone] Encounter Details Date Type Department Care Team (Late st Contact Info) Description 08/17/2018 Procedure Pass [place] Admitting Dept - Virtual Department [address] [place] [address] Social History Tobacco Use Types Packs/Day Years Used Date Smoking Tobacco: Never Smokeless Tobacco: Never Alcohol Use Standard Drinks/Week Comments Yes 8 (1 standard drink = 0.6 oz pur [...] Description 11/15/2025 2:00 PM EST Office Visit [facility] [address] [facility], [address] [place] [address] Manfred Torres MD, DSc [address] [facility], [address] [place] [address] [email or web address] documented as of this encounter Visit Diagnoses Not on filedocumented in this encounter Additional Health Concerns Infection Onset Date Last Indicated Resolved Time CoV-Risk 10/30/2022 10/30/2022 11/10/2022 1:22 AM EST documented as of this encounter Care Teams Biztalk Architect Relationship Specialty Start Date End Date Amrita Carranza PA [address] [place] [address] [email or web address] PCP - General 11/21/17 12/18/20 Azra Blakely NP [address] [place] [address] [email or web address] PCP - General Family Medicine 12/19/20 08/05/22 Pebbles Keith NP [address] [address] PCP - General Nurse Practitioner 08/06/22 12/16/23 Pebbles Keith NP [address] [place] [address] [email or web address] PCP - General Nurse Practitioner 12/17/23 07/18/24 Agustina Pino CNP [address] [place] [address] [email or web address] PCP - General Internal Medicine 07/19/24 Janell Wood MD [address] [place] [address] [email or web address] Insurance Assigned Provider 06/20/18 11/23/[address] [address] [email or web address] Social Work 10/04/19 06/04/21 Pebbles Keith NP [address] [place] [phone] [email or web address] Insurance Assigned Provider 01/24/24 07/18/24 Ana Al MBBS 15 [place] [address] [email or web address] Pain Medicine 08/10/24 documented as of this encounter Additional Source Comments The information contained in this document represents components of the legal health record. It is not the complete legal health record.[facility]
--- OUTSIDE RECORDS SUMMARY | 2025-01-13 13:50 | XMS_ITS | Encounter Summary ---
Author Organization [facility] Address [address] [facility] [address] [place] [address] Phone Care Team Providers Care Bundle Breaker Name Role Phone Amrita Carranza Primary Care Provider + Janell Wood MD Unavailable Inge Olsen [facility] Unavailable [phone] Azra Blakely CHIEF PROJECTIONIST Primary Care Provider [phone] Pebbles Keith CHIEF PROJECTIONIST Primary Care Provider [phone] Pebbles Keith CHIEF PROJECTIONIST Unavailable [phone] Pebbles Keith CHIEF PROJECTIONIST Primary Care Provider [phone] Agustina Pino RN INTERNAL MEDICINE Primary Care Provider [phone] Ana Al MBBS Unavailable Encounter Details Date Type Department Care Team (Late st Contact Info) Description 02/05/2019 Ancillary Orders [facility], X-Ray - [address] [place] [address] Ligia Burnette PA [address] [place] [address] [email or web address] Acute recurrent sinusitis, unspecified location; Sinus pain Social History Tobacco Use Types Packs/Day Years [...] Description 11/15/2025 2:00 PM EST Office Visit [facility] [address] [place] [address], [address] [place] [address] Manfred Torres MD, DSc 100 [facility], [address] [place] [address] [email or web address] documented as of this encounter Results * XR PARANASAL SINUSES 3 OR MORE VIEWS (02/05/2019 4:03 PM EDT) Anatomical Region Laterality Modality Face Radiographic Alyssa ging 02/05/2019 4:41 PM EDT Impressions 02/05/2019 4:43 PM EDT No evidence of sinusitis. POS - [id number] Narrative 02/05/2019 4:43 PM EDT HISTORY: ??As above. ? COMPARISON: None. SINUS RADIOGRAPH FINDINGS: Six is obtained. ??Paranasal sinuses and mastoids are clear. ??Mild right nasal septal deviation. ??Mild left nasal septal deviation. ??No destructive osseous changes. ??Soft tissues are normal. Procedure Note Radha Salomon MD - 02/05/2019 HISTORY: As above. COMPARISON: None. SINUS RADIOGRAPH FINDINGS: Six is obtained. Paranasal sinuses and mastoids are clear. Mild rightnasal septal deviation. Mild left nasal septal deviation. No destructiveosseous changes. Soft tissues are normal. IMPRESSION: No evidence of sinusitis. POS - [id number] Ligia ENG IMG XR HEAD AND MARC NT SERIES * XR CHEST PA AND LATERAL 2 VIEWS (02/05/2019 4:02 PM EDT) Anatomical Region Laterality Modality Chest Radiographic Alyssa ging 02/05/2019 4:40 PM EDT Impressions 02/05/2019 4:41 PM EDT No evidence of pneumonia. POS - [id number] Narrative 02/05/2019 4:41 PM EDT HISTORY: ??As above. ? COMPARISON: None. CHEST RADIOGRAPH FINDINGS: Two views obtained. ??Heart and mediastinum are normal. ??Lungs are clear. ??Completely imaged is lower cervical spine fusion hardware. ??Soft tissues are normal. Procedure Note Radha Salomon MD - 02/05/2019 HISTORY: As above. COMPARISON: None. CHEST RADIOGRAPH FINDINGS: Two views obtained. Heart and mediastinum are normal. Lungs are clear.Completely imaged is lower cervical spine fusion hardware. Soft tissuesare normal. IMPRESSION: No evidence of pneumonia. POS - [id number] Ligia ENG IMG XR CHEST documented in this encounter Visit Diagnoses Diagnosis Acute recurrent sinusitis, unspecified location Sinus pain Other diseases of nasal cavity and sinuses Acute recurrent sinusitis, unspecified location Acute recurrent sinusitis, unspecified location Sinus pain Other diseases of nasal cavity and sinuses documented in this encounter Additional Health Concerns Infection Onset Date Last Indicated Resolved Time CoV-Risk 10/30/2022 10/30/2022 11/10/2022 1:22 AM EST documented as of this encounter Care Teams Bundle Breaker Relationship Specialty Start Date End Date Amrita Carranza PA [address] [place] [address] [email or web address] PCP - General 11/21/17 12/18/20 Azra Blakely NP [address] [place] [address] [email or web address] PCP - General Family Medicine 12/19/20 08/05/22 Pebbles Keith NP [address] [place] [address] PCP - General Nurse Practitioner 08/06/22 12/16/23 Pebbles Keith NP [address] [place] [address] PCP - General Nurse Practitioner 12/17/23 07/18/24 Agustina Pino CNP [address] [place] [address] PCP - General Internal Medicine 07/19/24 Janell Wood MD [address] [place] [address] Insurance Assigned Provider 06/20/18 11/23/22 Inge Olsen, [address] [address] iC[employer] Social Work 10/04/19 06/04/21 Pebbles Keith NP [address] [place] [phone] [email or web address] Insurance Assigned Provider 01/24/24 07/18/24 Ana Al MBBS [address] [place] [address] [email or web address] Pain Medicine 08/10/24 documented as of this encounter Additional Source Comments The information contained in this document represents components of the legal health record. It is not the complete legal health record.[facility]
--- OUTSIDE RECORDS SUMMARY | 2025-01-13 13:50 | XMS_ITS | Encounter Summary ---
Author Organization [facility] Address [address] [facility] [address] [place] [address] Phone Care Team Providers Care Academic Computing Director Name Role Phone Pebbles Keith SUPERVISOR PAPER MACHINE Primary Care Provider Pebbles Keith SUPERVISOR PAPER MACHINE Unavailable [phone] Pebbles Keith SUPERVISOR PAPER MACHINE Primary Care Provider [phone] Agustina Pino CNP Primary Care Provider Ana Al MBBS Unavailable [phone] Encounter Details Date Type Department Care Team (Late st Contact Info) Description 03/20/2023 Procedure Pass [facility] Imaging - MR [address] [place] [address] Social History Tobacco Use Types Packs/Day Years Used Date Smoking Tobacco: Never Smokeless Tobacco: Never Alcohol Use Standard Drinks/Week Comments Yes 3 (1 standard drink = 0.6 oz pur e alcohol) Education Answer Date Recorded Are you interested [...] Description 11/15/2025 2:00 PM EST Office Visit [facility] [address] [facility] [place] [address] Manfred Torres MD, DSc 100 [facility], [address] [place] [address] [email or web address] documented as of this encounter Visit Diagnoses Not on filedocumented in this encounter Additional Health Concerns Assessment Noted Time PHQ-2 Depression Total Score: 0 08/03/20 22 1:42 PM EDT documented as of this encounter Care Teams Academic Computing Director Relationship Specialty Start Date End Date Pebbles Keith NP PCP - General Nurse Practitioner 08/06/22 12/16/23 Pebbles Keith NP [address] [place] [address] PCP - General Nurse Practitioner 12/17/23 07/18/24 Agustina Pino CNP [address] [place] [address] PCP - General Internal Medicine 07/19/24 Pebbles Keith NP [address] [place] [phone] [email or web address] Insurance Assigned Provider 01/24/24 07/18/24 Ana Al MBBS [address] [place] [address] [email or web address] u Pain Medicine 08/10/24 documented as of this encounter Additional Source Comments The information contained in this document represents components of the legal health record. It is not the complete legal health record.[facility]
--- OUTSIDE RECORDS SUMMARY | 2025-01-13 13:50 | XMS_ITS | Encounter Summary ---
Author Organization [facility] Address [address] [facility] [address] [place] [address] Phone Care Team Providers Care Laundry Tech Name Role Phone Agustina Pino CNP Primary Care Provider Ana Al MB Unavailable [phone] Encounter Details Date Type Department Care Team (Late st Contact Info) Description 07/22/2024 Transcribe Orders [facility] Admissions Department - Virtual Department [address] [place] [address] Rell Washington MD [address] [place] [address] Social History Tobacco Use Types Packs/Day Years [...] high school, GED, job training, learning the [place] language, technical skills, or developing parenting skills)? [...] 11/15/2025 2:00 PM EST Office Visit [facility] [address] [facility] [place] [address] Manfred Torres MD, DSc 100 [facility], [address] [place] [address] [email or web address] documented as of this encounter Visit Diagnoses Not on filedocumented in this encounter Additional Health Concerns Assessment Noted Time PHQ-9 Depression Total Score: 1 01/23/20 9:31 AM EDT PHQ-2 Depression Total Score: 0 06/14/20 10:52 AM EDT documented as of this encounter Care Teams Laundry Tech Relationship Specialty Start Date End Date Agustina Pino CNP [address] [place] [address] [email or web address] PCP - General Internal Medicine 07/19/24 Ana Al MBBS [address] [place] [address] [email or web address] Pain Medicine 08/10/24 documented as of this encounter Additional Source Comments The information contained in this document represents components of the legal health record. It is not the complete legal health record.[facility]
--- OUTSIDE RECORDS SUMMARY | 2025-01-13 13:50 | XMS_ITS | Clinical Summary ---
Author Organization [facility] Address [address] [place] [address] Phone Care Team Providers Care Design Maintenance Engineer Name Role Phone Agustina Pino WHEEL LOADER OPERATOR Primary Care Provider [phone] Encounters Date Type Department Care Team Description 11/12/2024 Telephone [facility] [address] [place] [address] [address] [place] [address] Rell Washington MD Referral (Received routine paper referral - Zak. Ab - There is no facesheet/demographics among the papers, the telephone number listed in [facility] is not working and Referring provider, Dr. Rell Washington, [facility] H/[facility] telephone number rings w/o answer... will continue trying the doctor's number.) 11/09/2024 Telephone [facility] [address] [place] [address] Agustina Pino NP Referral (Received routine paper referral - Zak. ab) from Last 3 Months Social History Tobacco Use Types Packs/Day Years Used Date Smoking Tobacco: Never Assessed Comments Unknown Sex and Gender Information Value Date Recorded Sex Assigned at Not on file Legal Sex Female 12:57 PM EDT Gender Identity Not on file Sexual Orientation Not on file Plan of Treatment Upcoming Encounters Date Type Department Care Team (Late st Contact Info) Description 01/27/2025 10:20 AM EDT Office Visit [facility] [address] [place] [address] Reilly Parker MD [address] [place] [address] [address] [place] [address] Health Maintenance Due Date Last Done Comments Breast Cancer Screening 1967 DTaP,Tdap,and Td Vaccines (1 - Tdap) 1986 Hepatitis B Vaccines (1 of 3 - 19+ 3-dose series) 1986 Cervical Cancer Screening: P ap Smear 1988 Pneumococcal Vaccine: 50+ Ye ars (1 of 1 - PCV) 2017 Zoster Vaccines (1 of 2) 2017 COVID-19 Vaccine (1 - 2023-2 5 season) 2024 Influenza Vaccine (#1) 2024 Cholesterol Screening (Lipid Panel) 11/13/2024 Colorectal Cancer Screening: Colonoscopy 11/13/2024 Depression Screening 11/13/2024 HIV Screening 11/13/2024 Hepatitis C Screening 11/13/2024 Social Influencers of Health Screening 11/13/2024 Hypertension/CHF/CAD Annual BMP Blood Test 11/16/2024 HIB Vaccines Aged Out No longer eligi ble based on patient's age to complete this topic HPV Vaccines Aged Out No longer eligi ble based on patient's age to complete this topic Hepatitis A Vaccines Aged Out No long er eligible based on patient's age to complete this topic IPV Vaccines Aged Out No longer eligi ble based on patient's age to complete this topic MMR Vaccines Aged Out No longer eligi ble based on patient's age to complete this topic Meningococcal ACWY Vaccine Aged Out N o longer eligible based on patient's age to complete this topic Meningococcal B Vacine Aged Out No lo nger eligible based on patient's age to complete this topic Pneumococcal Vaccine: Pediat rics (0 to 5 Years) and At-Risk Patients (6 to 64 Years) Aged Out No longer eligible b ased on patient's age to complete this topic RSV Immunization Patients Un [place] 20 months Aged Out No longer eligible b ased on patient's age to complete this topic Varicella Vaccines Aged Out No longer eligible based on patient's age to complete this topic Insurance [facility] Care Teams Design Maintenance Engineer Relationship Specialty Start Date End Date Agustina Pino NP [address] [place] [address] PCP - General 11/16/24
--- OUTSIDE RECORDS SUMMARY | 2025-01-13 13:51 | XMS_ITS | Encounter Summary ---
Author Organization [facility] Address [address] [place] [address] Phone Care Team Providers Care Seam Steamer Name Role Phone Pebbles Keith PACKING ROOM WORKER Primary Care Provider Pebbles Keith PACKING ROOM WORKER Unavailable Pebbles Keith PACKING ROOM WORKER Primary Care Provider Agustina Pino CNP Primary Care Provider Ana Al MB Unavailable [phone] Encounter Details Date Type Department Care Team (Late st Contact Info) Description 11/17/2023 Ancillary Orders [facility] Imaging - Mammo [address] [place] [address] Pebbles Keith NP [address] [place] [phone] [email or web address] Screening mammogram for breast cancer (Primary Dx) Social History Tobacco Use Types [...] Description 11/15/2025 2:00 PM EST Office Visit [facility] [address] [place] [address], [address] [place] [address] Manfred Torres MD, DSc [address] [place] [address], [address] [place] [address] [email or web address] documented as of this encounter Visit Diagnoses Diagnosis Screening mammogram for breast cancer- Primary documented in this encounter Additional Health Concerns Assessment Noted Time PHQ-2 Depression Total Score: 0 08/03/20 22 1:42 PM EDT documented as of this encounter Care Teams Seam Steamer Relationship Specialty Start Date End Date Pebbles Keith NP PCP - General Nurse Practitioner 08/06/22 12/16/23 Pebbles Keith NP [address] [place] [address] PCP - General Nurse Practitioner 12/17/23 07/18/24 Agustina Pino CNP [address] [place] [address] [email or web address] PCP - General Internal Medicine 07/19/24 Pebbles Keith NP [address] [place] [phone] [email or web address] Insurance Assigned Provider 01/24/24 07/18/24 Ana Al MBBS [address] [place] [address] [email or web address] u Pain Medicine 08/10/24 documented as of this encounter Additional Source Comments The information contained in this document represents components of the legal health record. It is not the complete legal health record.[facility]
--- OUTSIDE RECORDS SUMMARY | 2025-01-13 13:51 | XMS_ITS | Encounter Summary ---
Author Organization [facility] Address [address] [facility] [address] [place] [address] Phone Care Team Providers Care Family Services Specialist Name Role Phone Pebbles Keith CHAIRMAN AND CHIEF EXECUTIVE OFFICER Unavailable [phone] Pebbles Keith CHAIRMAN AND CHIEF EXECUTIVE OFFICER Primary Care Provider Agustina Pino HAND LAMINATOR Primary Care Provider Ana Al Unavailable Encounter Details Date Type Department Care Team (Late st Contact Info) Description 06/10/2024 Telephone [facility] Department of Neurosurgery at [address] [address] Zunilda Davila [address] [place] [address] [email or web address] Social History Tobacco Use Types Packs/Day Years [...] high school, GED, job training, learning the Sudanese language, technical skills, or developing parenting skills)? [...] Description 11/15/2025 2:00 PM EST Office Visit [facility] [address] [facility], [address] [place] [address] Manfred Torres MD, DSc [address] [facility], [address] [place] [address] [email or web address] documented as of this encounter Visit Diagnoses Not on filedocumented in this encounter Additional Health Concerns Assessment Noted Time PHQ-9 Depression Total Score: 1 01/23/20 9:31 AM EDT PHQ-2 Depression Total Score: 1 01/23/20 9:31 AM EDT documented as of this encounter Care Teams Family Services Specialist Relationship Specialty Start Date End Date Pebbles Keith NP [address] [place] [address] [email or web address] PCP - General Nurse Practitioner 12/17/23 07/18/24 Agustina Pino CNP [address] [place] [address] PCP - General Internal Medicine 07/19/24 Pebbles Keith NP [address] [place] [phone] [email or web address] Insurance Assigned Provider 01/24/24 07/18/24 Ana Al MBBS [address] [place] [address] [email or web address] Pain Medicine 08/10/24 documented as of this encounter Additional Source Comments The information contained in this document represents components of the legal health record. It is not the complete legal health record.[facility]
--- OUTSIDE RECORDS SUMMARY | 2025-01-13 13:52 | XMS_ITS | Continuity of Care Document ---
Author Organization [facility] Address [address] [place] [address] [address] [place], [place] Phone [phone] Care Team Providers Care Vp Corporate Partnerships Name Role Phone Janell Wood Care Team [...]
--- OUTSIDE RECORDS SUMMARY | 2025-01-13 13:52 | XMS_ITS | Encounter Summary ---
Author Organization [facility] Address [address] [facility] [address] [place] [address] Phone Care Team Providers Care Humanities Professor Name Role Phone Pebbles Keith TEST PULLER Primary Care Provider Pebbles Keith TEST PULLER Unavailable Pebbles Keith TEST PULLER Primary Care Provider Agustina Pino CNP Primary Care Provider Ana Al MBBS Unavailable [phone] Encounter Details Date Type Department Care Team (Late st Contact Info) Description 05/02/[address] [facility] Periop [address] [place] [address] Social History Tobacco Use Types Packs/Day Years [...] Description 11/15/2025 2:00 PM EST Office Visit [facility] [address] [facility], [address] [place] [address] Manfred Torres MD, DSc 100 [facility], [address] [place] [address] [email or web address] documented as of this encounter Visit Diagnoses Not on filedocumented in this encounter Additional Health Concerns Assessment Noted Time PHQ-2 Depression Total Score: 0 08/03/20 22 1:42 PM EDT documented as of this encounter Care Teams Humanities Professor Relationship Specialty Start Date End Date Pebbles Keith NP PCP - General Nurse Practitioner 08/06/22 12/16/23 Pebbles Keith NP [address] [place] [address] PCP - General Nurse Practitioner 12/17/23 07/18/24 Agustina Pino CNP [address] [place] [address] PCP - General Internal Medicine 07/19/24 Pebbles Keith NP [address] [place] [phone] [email or web address] Insurance Assigned Provider 01/24/24 07/18/24 Ana lA MBBS [address] [place] [address] [email or web address] Pain Medicine 08/10/24 documented as of this encounter Additional Source Comments The information contained in this document represents components of the legal health record. It is not the complete legal health record.[facility]
--- OUTSIDE RECORDS SUMMARY | 2025-01-13 13:52 | XMS_ITS | Encounter Summary ---
Author Organization [facility] Address [address] [facility] [address] [place] [address] Phone Care Team Providers Care Professor Of Social Work Name Role Phone Janell Wood MD Unavailable [phone] Pebbles Keith NP Primary Care Provider Pebbles Keith NP Unavailable Pebbles Keith STOKER INSTALLATION MECHANIC Primary Care Provider [phone] Agustina Pino CNP Primary Care Provider [phone] Ana Al Unavailable [phone] Encounter Details Date Type Department Care Team (Late st Contact Info) Description 10/30/2022 Procedure Pass [facility] Imaging - CT [address] [place] [address] Social History Tobacco Use Types Packs/Day Years [...] Description 11/15/2025 2:00 PM EST Office Visit [facility] [address] [facility], [address] [place] [address] Manfred Torres MD, DSc [address] [facility], [address] [place] [address] [email or web address] documented as of this encounter Visit Diagnoses Not on filedocumented in this encounter Additional Health Concerns Infection Onset Date Last Indicated Resolved Time CoV-Risk 10/30/2022 10/30/2022 11/10/2022 1:22 AM EST Assessment Noted Time PHQ-2 Depression Total Score: 0 08/03/20 1:42 PM EDT documented as of this encounter Care Teams Professor Of Social Work Relationship Specialty Start Date End Date Pebbles Keith NP [address] [place] [address] PCP - General Nurse Practitioner 08/06/22 12/16/23 Pebbles Keith NP [address] [place] [address] PCP - General Nurse Practitioner 12/17/23 07/18/24 Agustina Pino CNP [address] [place] [address] PCP - General Internal Medicine 07/19/24 Janell Wood MD [address] [place] [address] [email or web address] Insurance Assigned Provider 06/20/18 11/23/22 Pebbles Keith NP [address] [place] [phone] [email or web address] Insurance Assigned Provider 01/24/24 07/18/24 Ana Al MBBS [address] [place] [address] [email or web address] Pain Medicine 08/10/24 documented as of this encounter Additional Source Comments The information contained in this document represents components of the legal health record. It is not the complete legal health record.[facility]
--- OUTSIDE RECORDS SUMMARY | 2025-01-13 13:52 | XMS_ITS | Encounter Summary ---
Author Organization [facility] Address [address] [facility] [address] [place] [address] Phone Care Team Providers Care Professor Of Geography Name Role Phone Janell Wood MD Unavailable [phone] Pebbles Keith NP Primary Care Provider Pebbles Keith ASSISTANT SERVICE MANAGER Unavailable Pebbles Keith ASSISTANT SERVICE MANAGER Primary Care Provider [phone] Agustina Pino CNP Primary Care Provider [phone] Ana Al Unavailable [phone] Encounter Details Date Type Department Care Team (Late st Contact Info) Description 10/24/2022 Procedure Pass [facility] Imaging - Mammo [address] [place] [address] Social History Tobacco Use Types Packs/Day Years Used Date Smoking Tobacco: Never Smokeless Tobacco: Never Alcohol Use Standard Drinks/Week Comments Yes 3 (1 standard drink = 0.6 oz pur e alcohol) 8 drinks/week Sex and Gender Information Value Date Recorded Sex Assigned at Female 04/02/2020 1:18 PM EDT Gender Identity Female 04/02/2020 1:18 PM EDT Sexual Orientation Straight 04/02/2020 1: 18 PM EDT documented as of this encounter Plan of Treatment Upcoming Encounters Date Type Department Care Team (Late st Contact Info) Description 11/15/2025 2:00 PM EST Office Visit [facility] [address] [facility], [address] [place] [address] Manfred Torres MD, DSc [address] [facility], [address] [place] [address] [email or web address] documented as of this encounter Visit Diagnoses Not on filedocumented in this encounter Additional Health Concerns Infection Onset Date Last Indicated Resolved Time CoV-Risk 10/30/2022 10/30/2022 11/10/2022 1:22 AM EST Assessment Noted Time PHQ-2 Depression Total Score: 0 08/03/20 1:42 PM EDT documented as of this encounter Care Teams Professor Of Geography Relationship Specialty Start Date End Date Pebbles Keith NP [address] [place] [address] [email or web address] PCP - General Nurse Practitioner 08/06/22 12/16/23 Pebbles Keith NP [address] [place] [address] PCP - General Nurse Practitioner 12/17/23 07/18/24 Agustina Pino CNP [address] [place] [address] [email or web address] PCP - General Internal Medicine 07/19/24 Janell Wood MD [address] [place] [address] [email or web address] Insurance Assigned Provider 06/20/18 11/23/22 Pebbles Keith NP [address] [place] [phone] [email or web address] Insurance Assigned Provider 01/24/24 07/18/24 Ana Al MBBS [address] [place] [address] [email or web address] Pain Medicine 08/10/24 documented as of this encounter Additional Source Comments The information contained in this document represents components of the legal health record. It is not the complete legal health record.[facility]
--- OUTSIDE RECORDS SUMMARY | 2025-01-13 13:52 | XMS_ITS | Encounter Summary ---
Author Organization [facility] Address [address] [facility] [address] [place] [address] Phone Care Team Providers Care C Consultant Name Role Phone Pebbles Keith COMPENSATION ADJUSTER Primary Care Provider Pebbles Keith COMPENSATION ADJUSTER Unavailable Pebbles Keith COMPENSATION ADJUSTER Primary Care Provider Agustina Pino CNP Primary Care Provider Ana Al MBBS Unavailable Encounter Details Date Type Department Care Team (Late st Contact Info) Description 12/15/2023 Ancillary Orders [facility] Imaging - RF [address] [place] [address] Nina Fay MD, PhD [address] [place] [address] Pain (Primary Dx) Social History Tobacco Use Types [...] Description 11/15/2025 2:00 PM EST Office Visit [address], [address] [place] [address] Manfred Torres MD, DSc [address] [facility], [address] [place] [address] [email or web address] Pending Results Name Type Priority Associated Diagnoses Date /Time FL Fluoroscopy Guidance - No Charge Imaging Routine Pain 12/17/2023 2:10 PM EST Scheduled Orders Name Type Priority Associated Diagnoses Orde r Schedule FL Fluoroscopy Guidance - No Charge Imaging Routine Pain Expected: 12/17/2023, Expires: 03/14/2024 documented as of this encounter Visit Diagnoses Diagnosis Pain- Primary Generalized pain documented in this encounter Additional Health Concerns Assessment Noted Time PHQ-2 Depression Total Score: 0 08/03/20 1:42 PM EDT documented as of this encounter Care Teams C Consultant Relationship Specialty Start Date End Date Pebbles Keith NP [email or web address] PCP - General Nurse Practitioner 08/06/22 12/16/23 Pebbles Keith NP [address] [place] [address] PCP - General Nurse Practitioner 12/17/23 07/18/24 Agustina Pino CNP [address] [place] [address] [email or web address] PCP - General Internal Medicine 07/19/24 Pebbles Keith NP [address] [place] [phone] [email or web address] Insurance Assigned Provider 01/24/24 07/18/24 Ana Al MBBS [address] [place] [address] [email or web address] u Pain Medicine 08/10/24 documented as of this encounter Additional Source Comments The information contained in this document represents components of the legal health record. It is not the complete legal health record.[facility]
--- OUTSIDE RECORDS SUMMARY | 2025-01-13 13:52 | XMS_ITS | Encounter Summary ---
Author Organization [facility] Address [address] [facility] [address] [place] [address] Phone Care Team Providers Care Building Equipment Inspector Name Role Phone Pebbles Keith BOLT LOADER Unavailable Pebbles Keith BOLT LOADER Primary Care Provider Agustina Pino VICE PRESIDENT MARKETING & DEVELOPMENT Primary Care Provider Ana Al Unavailable [phone] Encounter Details Date Type Department Care Team (Late st Contact Info) Description 12/17/2023 Procedure Pass [facility] Periop [address] [place] [address] Social History Tobacco Use Types Packs/Day Years [...] Description 11/15/2025 2:00 PM EST Office Visit [facility] [address] [facility], [address] [place] [address] Manfred Torres MD, DSc 100 [facility], [address] [place] [address] [email or web address] documented as of this encounter Visit Diagnoses Not on filedocumented in this encounter Additional Health Concerns Assessment Noted Time PHQ-2 Depression Total Score: 0 08/03/20 22 1:42 PM EDT documented as of this encounter Care Teams Building Equipment Inspector Relationship Specialty Start Date End Date Pebbles Keith NP [address] [place] [address] [email or web address] PCP - General Nurse Practitioner 12/17/23 07/18/24 Agustina Pino CNP [address] [place] [address] PCP - General Internal Medicine 07/19/24 Pebbles Keith NP [address] [place] [phone] [email or web address] Insurance Assigned Provider 01/24/24 07/18/24 Ana Al MBBS [address] [place] [address] [email or web address] Pain Medicine 08/10/24 documented as of this encounter Additional Source Comments The information contained in this document represents components of the legal health record. It is not the complete legal health record.[facility]
--- OUTSIDE RECORDS SUMMARY | 2025-01-13 13:52 | XMS_ITS | Encounter Summary ---
Author Organization [facility] Address [address] [facility] [address] [place] [address] Phone Care Team Providers Care Mule Developer Name Role Phone Pebbles Keith COMPENSATION SPECIALIST Primary Care Provider Pebbles Keith COMPENSATION SPECIALIST Unavailable Pebbles Keith COMPENSATION SPECIALIST Primary Care Provider [phone] Agustina Pino CNP Primary Care Provider Ana Al MBBS Unavailable Encounter Details Date Type Department Care Team (Late st Contact Info) Description 08/14/2023 Procedure Pass [facility] Imaging - MR [address] [place] [address] Social History Tobacco Use Types Packs/Day Years [...] Description 11/15/2025 2:00 PM EST Office Visit [address], [address] [place] [address] Manfred Torres MD, DSc [address] [facility], [address] [place] [address] [email or web address] documented as of this encounter Visit Diagnoses Not on filedocumented in this encounter Additional Health Concerns Assessment Noted Time PHQ-2 Depression Total Score: 0 08/03/20 22 1:42 PM EDT documented as of this encounter Care Teams Mule Developer Relationship Specialty Start Date End Date Pebbles Keith NP [email or web address] PCP - General Nurse Practitioner 08/06/22 12/16/23 Pebbles Keith NP [address] [place] [address] PCP - General Nurse Practitioner 12/17/23 07/18/24 Agustina Pino CNP [address] [place] [address] [email or web address] PCP - General Internal Medicine 07/19/24 Pebbles Keith NP [address] [place] [phone] [email or web address] Insurance Assigned Provider 01/24/24 07/18/24 Ana Al MBBS [address] [place] [address] [email or web address] u Pain Medicine 08/10/24 documented as of this encounter Additional Source Comments The information contained in this document represents components of the legal health record. It is not the complete legal health record.[facility]
--- OUTSIDE RECORDS SUMMARY | 2025-01-13 13:52 | XMS_ITS | Encounter Summary ---
Author Organization [facility] Address [address] [facility] [address] [place] [address] Phone Care Team Providers Care Simulation Technician Name Role Phone Janell Wood MD Unavailable Pebbles Keith NP Primary Care Provider [phone] Pebbles Keith NP Unavailable Pebbles Keith NP Primary Care Provider [phone] Agustina Pino CNP Primary Care Provider Ana Al Unavailable [phone] Encounter Details Date Type Department Care Team (Late st Contact Info) Description 10/24/2022 Ancillary Orders [facility] - Family Medicine [address] [place] [address] Pebbles Keith NP [address] [place] [phone] [email or web address] Screening breast examination Social History Tobacco Use Types Packs/Day Years [...] Description 11/15/2025 2:00 PM EST Office Visit [facility] [address] [facility] [place] [address] Manfred Torres MD, DSc [address] [facility], [address] [place] [address] [email or web address] documented as of this encounter Results * BI MAMMOGRAM SCREENING WITH TOMOSYNTHESIS WITH CAD (BILATERAL) (11/14/2023 3:55 PM EST) Anatomical Region Laterality Modality Breast Left, Breast Right, Breast Bilateral Bila teral Mammography 11/15/2023 6:01 PM EST Impressions 11/15/2023 6:02 PM EST No mammographic evidence of malignancy in either breast. Annual screening mammography is recommended. BI-RADS 1 NEGATIVE The patient will be notified of the results and recommendations. Narrative 11/15/2023 6:02 PM EST BI MAMMOGRAM SCREENING WITH TOMOSYNTHESIS WITH CAD (BILATERAL) Additional patient information: Screening. COMPARISON: Comparison is made with relevant prior imaging. Breast composition: There are scattered areas of fibroglandular density. FINDINGS: No abnormal masses, suspicious calcifications, or other significant findings are identified mammographically in either breast. Procedure Note Manish Wiley MD, MPH - 11/15/2023 BI MAMMOGRAM SCREENING WITH TOMOSYNTHESIS WITH CAD (BILATERAL) Additional patient information: Screening. COMPARISON: Comparison is made with relevant prior imaging. Breast composition: There are scattered areas of fibroglandular density. FINDINGS: No abnormal masses, suspicious calcifications, or other significantfindings are identified mammographically in either breast. IMPRESSION: No mammographic evidence of malignancy in either breast. Annual screening mammography is recommended. BI-RADS 1 NEGATIVE The patient will be notified of the results and recommendations. Pebbles Keith ORGAN TEACHER IMG MG EXAMS documented in this encounter Visit Diagnoses Diagnosis Screening breast examination Other screening breast examination Screening breast examination Other screening breast examination documented in this encounter Additional Health Concerns Infection Onset Date Last Indicated Resolved Time CoV-Risk 10/30/2022 10/30/2022 11/10/2022 1:22 AM EST Assessment Noted Time PHQ-2 Depression Total Score: 0 08/03/20 1:42 PM EDT documented as of this encounter Care Teams Simulation Technician Relationship Specialty Start Date End Date Pebbles Keith NP [address] [place] [phone] [email or web address] PCP - General Nurse Practitioner 08/06/22 12/16/23 Pebbles Keith NP [address] [place] [phone] PCP - General Nurse Practitioner 12/17/23 07/18/24 Agustina Pino CNP [address] [place] [phone] PCP - General Internal Medicine 07/19/24 Janell Wood MD [address] [place] [phone] Insurance Assigned Provider 06/20/18 11/23/22 Pebbles Keith NP [address] [place] [phone] Insurance Assigned Provider 01/24/24 07/18/24 Ana Al MBBS [address] [place] [phone] [email or web address] Medicine 08/10/24 documented as of this encounter Additional Source Comments The information contained in this document represents components of the legal health record. It is not the complete legal health record.[facility]
--- OUTSIDE RECORDS SUMMARY | 2025-01-13 13:52 | XMS_ITS | Encounter Summary ---
Author Organization [facility] Address [address] [facility] [address] [place] [address] Phone Care Team Providers Care Stoker Mechanic Name Role Phone Amrita Carranza Primary Care Provider + Janell Wood MD Unavailable Inge Olsen [facility] Unavailable [phone] Azra Blakely VARNISH DIPPER Primary Care Provider [phone] Pebbles Keith VARNISH DIPPER Primary Care Provider Pebbles Keith VARNISH DIPPER Unavailable [phone] Pebbles Keith VARNISH DIPPER Primary Care Provider [phone] Agustina Pino PRODUCT INSPECTION SUPERVISOR Primary Care Provider Ana Al MBBS Unavailable [phone] Encounter Details Date Type Department Care Team (Late st Contact Info) Description 12/07/2020 Procedure Pass [facility], Ct Scan - [facility] [address] [place] [address] Social History Tobacco Use Types Packs/Day Years [...] Description 11/15/2025 2:00 PM EST Office Visit [facility] [address] [facility] [place] [address] Manfred Torres MD, DSc [address] [facility], [address] [place] [address] [email or web address] documented as of this encounter Visit Diagnoses Not on filedocumented in this encounter Additional Health Concerns Infection Onset Date Last Indicated Resolved Time CoV-Risk 10/30/2022 10/30/2022 11/10/2022 1:22 AM EST Assessment Noted Time PHQ-2 Depression Total Score: 0 11/01/19 10:53 AM EST documented as of this encounter Care Teams Stoker Mechanic Relationship Specialty Start Date End Date Amrita Carranza PA [address] [place] [phone] [email or web address] PCP - General 11/21/17 12/18/20 Azra Blakely NP [address] [place] [phone] [email or web address] PCP - General Family Medicine 12/19/20 08/05/22 Pebbles Keith NP [address] [place] [phone] [email or web address] PCP - General Nurse Practitioner 08/06/22 12/16/23 Pebbles Keith NP [address] [place] [phone] [email or web address] PCP - General Nurse Practitioner 12/17/23 07/18/24 Agustina Pino CNP [address] [place] [phone] [email or web address] PCP - General Internal Medicine 07/19/24 Janell Wood MD [address] [place] [phone] [email or web address] Insurance Assigned Provider 06/20/18 11/23/22 Inge Olsen, [facility] [address] [place] [address] [email or web address] Work 10/04/19 06/04/21 Pebbles Keith NP [address] [place] [phone] [email or web address] Insurance Assigned Provider 01/24/24 07/18/24 Ana Al MBBS [address] [place] [address] [email or web address] Pain Medicine 08/10/24 documented as of this encounter Additional Source Comments The information contained in this document represents components of the legal health record. It is not the complete legal health record.[facility]
--- OUTSIDE RECORDS SUMMARY | 2025-01-13 13:53 | XMS_ITS | Encounter Summary ---
Author Organization [facility] Address [address] [facility] [address] [place] [address] Phone Care Team Providers Care Metal Treater Name Role Phone Pebbles Keith COMPRESSED GASES TESTER Primary Care Provider Pebbles Keith COMPRESSED GASES TESTER Unavailable Pebbles Keith COMPRESSED GASES TESTER Primary Care Provider Agustina Pino CNP Primary Care Provider [phone] Ana Al MBBS Unavailable [phone] Encounter Details Date Type Department Care Team (Late st Contact Info) Description 07/03/2023 Procedure Pass [facility] Imaging - MR [address] [place] [address] Social History Tobacco Use Types Packs/Day Years [...] Description 11/15/2025 2:00 PM EST Office Visit [address] [place] [address] Manfred Torres MD, DSc [address] [facility], [address] [place] [address] [email or web address] documented as of this encounter Visit Diagnoses Not on filedocumented in this encounter Additional Health Concerns Assessment Noted Time PHQ-2 Depression Total Score: 0 08/03/20 22 1:42 PM EDT documented as of this encounter Care Teams Metal Treater Relationship Specialty Start Date End Date Pebbles Keith NP [email or web address] PCP - General Nurse Practitioner 08/06/22 12/16/23 Pebbles Keith NP [address] [place] [phone] PCP - General Nurse Practitioner 12/17/23 07/18/24 Agustina Pino CNP [address] [place] [phone] [email or web address] PCP - General Internal Medicine 07/19/24 Pebbles Keith NP [address] [place] [phone] [email or web address] Insurance Assigned Provider 01/24/24 07/18/24 Ana Al MBBS [address] [place] [address] [email or web address] Pain Medicine 08/10/24 documented as of this encounter Additional Source Comments The information contained in this document represents components of the legal health record. It is not the complete legal health record.[facility]
--- OUTSIDE RECORDS SUMMARY | 2025-01-13 13:53 | XMS_ITS | Clinical Summary ---
Author Organization [facility] Address [address] [place] [address] Phone Care Team Providers Care Financial Legal Assistant Name Role Phone Agustina Pino RADIOGRAPHER ANGIOGRAM Primary Care Provider Ana Al [facility] Unavailable [phone] Allergies Active Allergy Reactions Criticality Noted Date Comments Migue Inhibitors Anaphylaxis,Angioede m a,Swelling High 01/18/2014 Hydromorphone Other (See Comments) 08/18/2018 Insomnia, hyper, hot/cold flashes Lisinopril Anaphylaxis High 01/18/2014 Opioids - Morphine Analogues Hives 01/18/2014 Oxycodone-Acetaminophen 01/18/2014 Other reaction(s): shaky, hyper Venom-Honey Bee Swelling 10/20/2017 Medications Medication Sig Dispensed Refills Start Date End Date Status cholecalciferol, vitamin D3, 25 mcg (1,000 unit) capsule 10/20/2017 Active levocetirizine (XYZAL) 5 MG tablet Take 5 mg by mouth every evening. Active psyllium husk (METAMUCIL ORAL) Take 3 capsules by mouth daily. 10/20/2017 Active traZODone (DESYREL) 50 MG tabletIndications:I nsomnia TAKE ONE OR TWO TABLETS BY MOUTH NIGHTLY NEEDED AT BEDTIME 180 tablet 2 07/28/2024 Active celecoxib (CELEBREX) 200 MG capsule Take 1 capsule (200 mg total) by mouth daily. 30 capsule 2 09/13/2024 Active dextroamphetamine-a mphetamine (ADDERALL) 5 mg TabIndications:Atte ntion deficit hyperactivity disorder (ADHD), unspecified ADHD type Take 2 tablets in the morning and 1 tablet in the evening 90 tablet 12/28/2024 Active dextroamphetamine-a mphetamine (ADDERALL) 5 mg TabIndications:Atte ntion deficit hyperactivity disorder (ADHD), unspecified ADHD type Take 2 tablets in the morning and 1 tablet in the evening 90 tablet 11/25/2024 Discontinue d(Reorder) Active Problems Patient Care Coordination No te Formatting of this note migh t be different from the original. i Problem Noted Date Diagnosed Date Fibromyalgia 06/15/2024 Other chronic pain 06/11/2024 Papanicolaou smear of cervix with low grade squamous intraepithelial lesion (LGSIL) 04/26/2024 Overview (04/26/2024): 01/2024 Pap LSIL / HPV negative (pt reports hx +HPV on Pap >5 years ago) 03/2024 Colposcopy without lesions, ECC w/ benign squamous epithelium but no endocervical cells [ ] repeat Pap/HPV cotest in 03/2025 Lumbar radiculopathy 12/17/2023 Assessment & Plan (06/27/2024 8:06 AM EDT): Lower back pain with radiculopathy- seen with neuro surg and also pain management. Hopes to be seen with [facility] neurosurg provider off walker for additional help. Does daily NSAID with celebrex- physical therapy and home stretching exercises. Anxiety and depression 11/15/2021 ADHD 05/30/2021 Assessment & Plan (06/27/2024 7:58 AM EDT): Has been on medication x 5-6 yrs with significant improvement in symptoms on medication. Seen with therapist off walker for anxiety as well. Remains on same dose of med. 10mg am and 5mg mid -day. 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 Sees endo Hypertension 01/18/2014 Overview (06/27/2024): Had had adverse side effects/ intolerances to most all antihypertensive medication - Hctz- dizzy/ lininopril- swelling, amlodipine/ valsartan-fatigue/ lethargy Assessment & Plan (06/27/2024 8:04 AM EDT): History of hypertension and has been intolerant to most all of attempted medications. Was seen with cardiology - attempted clonidine -but no longer taking this. Can try this again if she tolerates it and she will be following up with cardiology. Continue to monitor blood pressure at home. Is taking needed NSAIDs and also ADHD medication which can impact blood pressure as well. Resolved Problems Problem Noted Date Diagnosed Date Resolved Date Pelvic cramping 03/23/2020 06/14/2024 Assessment & Plan (03/23/2020 4:09 PM EDT): Patient states she has a history of very small fibroids noted on ultrasound for kidney stones done perhaps around age 47. She is not certain where the scanning was done may be [facility] or [facility]. Patient believes she had last pelvic exam 2 years ago with PCP. Only significant finding was a retroverted uterus. Pelvic symptoms that seem to be unrelated to any bleeding, although exacerbated by her menses, may or may not be OFFICE CLEANER in etiology. GI symptoms, fibromyalgia, anxiety, constipation may also be contributing factors. I have suggested pelvic ultrasound to evaluate for any possible pelvic pathology. Discussed possible use of a levonorgestrel IUD. Patient states she had a Mirena for only a couple months. She had a lot of pelvic discomfort and pain and anxiety regarding having a device within her. She worries about her reactions to many medications and would be reluctant to have another IUD. Perimenopause 03/23/2020 06/15/2024 Assessment & Plan (03/23/2020 4:07 PM EDT): Bleeding pattern is consistent with perimenopause. Possible worsening of anxiety and other nonspecific symptoms may be related to her fibromyalgia or chronic anxiety. Its possibility that the hormonal changes of perimenopause may be exacerbating some of these feelings and symptoms. Possible the pandemic is contributing as well. Patient is not having clear vasomotor symptoms. Use of estrogen/HRT for perimenopause discussed. 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 May have been attributable to combination OCP use. Estrogen use not advised. Encounters Date Type Department Care Team Description 12/08/2024 11:30 AM EST Telemedicine [facility] Neurosurgery [address] [place] [address] [place] [phone] Rupesh Cee, CARMENZA, DNP Pituitary lesion (Primary Dx) 12/02/2024 11:26 AM EST - 12/02/2024 11:59 PM EST Hospital Encounter [facility], [facility] - [address] [place] [address] Lita Galvez MD Discharge Disposition: Home or Self Care 11/22/2024 Telephone [facility] - Internal Medicine [address] [place] [phone] Sia Galvez RN 11/18/2024 Telephone [facility] Internal Medicine [address] [place] [phone] Agustina Pino CNP last visit notes, labs and image 11/16/2024 Telephone [facility] Internal Medicine [address] [place] [phone] Sia Galvez RN 11/16/2024 [facility] Internal Medicine [address] [place] [phone] Agustina Pino CNP please fax last PCP Office notes and demographic face sheet 11/12/2024 Orders Only [facility] Neuro[facility] Center [address] [facility] [place] [address] Manfred Torres MD, DSc 11/11/2024 11:30 AM EST Telemedicine [facility] Neuro[facility]ocrine Clinical Center [address] [place] [facility] [place] [address] Manfred Torres MD, DSc Benign neoplasm of pituitary gland and craniopharyngeal duct (pouch) (Primary Dx) 10/21/2024 Refill [facility] - Internal Medicine [address] [place] [address] Sia Galvez, charge coordinator Refill 12/04/2023 Procedure Pass [facility], [facility] - [address] [place], [place] [id number] from Last 3 Months Immunizations Name Administration Dates Next Due COVID-19 (Pre-08/11) Moderna Vaccine, mRNA, PF 10/10/2021 COVID-19 (Pre-08/11) Pfizer Vaccine, mRNA, PF 11/30/2020,11/13/2020,10/30/2020 Influenza Quadrivalent Preservative Free IM 07/20,08/06/2022,07/30/2021 Pneumococcal polysaccharide PPSV23 01/17/2021 Tdap 05/22/2022 Zoster recombinant 07/30/2021,05/30/2021 Family History Medical History Relation Comments Hyperlipidemia Brother 1 No Known Problems Brother 2 Anxiety disorder Father COPD Father Heart attack Father minor Prostate cancer Father has done well Anxiety disorder Mother Relation Status Comments Brother 1 Brother 2 Father Alive Mother Alive Social History Tobacco Use Types Packs/Day Years Used Date Smoking Tobacco: Never Smokeless Tobacco: Never Tobacco Cessation:Counseling Given: Not Answered Alcohol Use Standard Drinks/Week Comments Yes 3 [...] high school, GED, job training, learning the [place] language, technical skills, or developing parenting skills)? [...] your housing situation today? I have ramona johnson 01/16/2024 How many times have you move [...] Orientation Straight 04/02/2020 1: 18 PM EDT Last Filed Vital Signs Vital Sign Reading Time Taken Comments Blood Pressure 142/83 06/15/2024 9:11 AM EDT Pulse 73 06/15/2024 9:11 AM EDT Temperature 37.2 ??C (98.9 ??F) 06/15/2024 9:11 AM ED T Respiratory Rate 16 06/11/2024 8:31 AM EDT Oxygen Saturation 98% 06/15/2024 9:11 AM EDT Inhaled Oxygen Concentration - - Weight 82.2 kg (181 lb 4.8 oz) 06/15/2024 9:11 A M EDT Height 159.6 cm (5' 2.84 ) 06/15/2024 9:11 AM ED T Body Mass Index 32.28 06/15/2024 9:11 AM EDT Plan of Treatment Upcoming Encounters Date Type Department Care Team (Late st Contact Info) Description 11/15/2025 2:00 PM EST Office Visit [facility] Neuro[facility]ocrine Clinical Center [address] [facility] [place] [address] Manfred Torres MD, DSc [address], [address] [place] [address] [email or web address] Health Maintenance Due Date Last Done Comments HEPATITIS C SCREENING 1985 HIV ONE-TIME SCREENING (18-65 YEARS) 1985 COLOGUARD 2012 COLONOSCOPY 2012 COLORECTAL CANCER SCREENING 2012 FIT TEST 2012 FOBT 2012 SIGMOIDOSCOPY 2012 VIRTUAL COLONOSCOPY 2012 PNEUMOCOCCAL VACCINES (50+ years) (2 of 2 - PCV) 01/17/2022 01/17/2021 BLOOD PRESSURE 12/16/2024 06/15/2024 DEPRESSION SCREENING 06/14/2025 06/14/2024, 01/23/20 24 MAMMOGRAM 11/14/2025 11/14/2023, 01/2023, 10/23/2022, Additional history exists PAP SMEAR 01/22/2027 01/23/2024 SCREENING FOR DIABETES 07/22/2027 07/22/2024, 2022 LIPID PANEL 02/01/2029 02/02/2024, 01/18, 10/05/2022, Additional history exists Adult Td,Tdap Booster 05/22/2032 05/22/2022 ZOSTER VACCINES Completed 07/30/2021, 05/30/2021 COVID-19 VACCINE Completed 07/24/2024, , 11/30/2020, Additional history exists INFLUENZA VACCINE Completed 07/24/2024, , 08/06/2022, Additional history exists SMOKING STATUS SCREENING (Once After 26 Yrs) Completed 11/11/2024 HEPATITIS A VACCINES Aged Out No long er eligible based on patient's age to complete this topic HIB VACCINES Aged Out No longer eligi ble based on patient's age to complete this topic MENINGOCOCCAL VACCINES (ACWY) Aged Out No longer eligible based on patient's age to complete this topic Medical Devices Implanted Type Area Straightener Device Identifier Shelf Expiration Date Model / Serial / Lot Posterior Cervical Hardware Sentinel 4.75mm Peek Knotless [place] System Implanted:Qty : 2 on 05/02/2023 by Marco Godoy MD at [facility] Right: Shoulder [id number] 06/19/2024 / / [id number] Procedures Procedure Name Priority Date/Time Associated Diagnosis Comments MRI BRAIN (PITUITARY) WITH AND WITHOUT CONTRAST Routine 12/02/2024 12:26 PM EST Benign neoplasm of pituitary gland and craniopharyngeal duct TSH Routine 11/17/2024 10:49 AM EST Benign neoplasm of pituitary gland and craniopharyngeal duct (pouch) T4, TOTAL Routine 11/17/2024 10:49 AM EST Benign neoplasm of pituitary gland and craniopharyngeal duct (pouch) FSH Routine 11/17/2024 10:49 AM EST Benign neoplasm of pituitary gland and craniopharyngeal duct (pouch) FREE T4 Routine 11/17/2024 10:49 AM EST Benign neoplasm of pituitary gland and craniopharyngeal duct (pouch) CORTISOL Routine 11/17/2024 10:49 AM EST Benign neoplasm of pituitary gland and craniopharyngeal duct (pouch) IGF-1 Routine 11/17/2024 10:49 AM EST Benign neoplasm of pituitary gland and craniopharyngeal duct (pouch) PROLACTIN Routine 11/17/2024 10:49 AM EST Benign neoplasm of pituitary gland and craniopharyngeal duct (pouch) LIPID PANEL Routine 02/02/2024 8:10 AM EDT Screening for cholesterol level PAP TEST Routine 01/23/2024 12:00 AM EDT BI MAMMOGRAM SCREENING WITH TOMOSYNTHESIS WITH CAD (BILATERAL) Routine 11/14/2023 3:55 PM EST Screening breast examination from Last 3 Months or Most Recently Relevant to Health Maintenance Results * MRI BRAIN (PITUITARY) WITH AND WITHOUT CONTRAST (12/02/2024 12:26 PM EST) Anatomical Region Laterality Modality Head Magnetic Resonan ce 12/02/2024 12:5 3 PM EST Impressions 12/02/2024 1:10 PM EST 1. ??Pituitary gland heterogeneous enhancing lesion measuring up to 1.2 cm, without significant change, likely representing a pituitary macroadenoma. 2. ??No acute intracranial abnormality. Narrative 12/02/2024 1:10 PM EST MRI BRAIN (PITUITARY) WITH AND WITHOUT CONTRAST Referring clinician's provided indication for this examination in Epic: * Pituitary adenoma, known or suspected TECHNIQUE: Multi-sequence, multi-planar MRI of the pituitary was performed before and after intravenous contrast. COMPARISON: Pituitary MRI October 27, 2023. FINDINGS: Sella: There is mild enlargement of the sella. There is a T2 hyperintense slightly heterogeneous enhancing lesion in the pituitary gland that measures approximately 1 x 1 x 1.2 cm. It is similar in appearance to previous exam of October 27, 2023. The infundibulum is grossly midline to slightly displaced to the left. There is no mass effect on the optic nerves or optic chiasm. The lesion abuts the right cavernous sinus and right cavernous ICA. Brain: Brain parenchyma is grossly stable in appearance. Scattered foci with T2 signal prolongation in the periventricular subcortical white matter, unchanged. No new focus with signal abnormality. No evidence of acute infarct or hemorrhage. No mass-effect. No hydrocephalus, midline shift, or extra-axial fluid collection. The flow voids of the major visualized arteries are intact. Extracranial Structures: Bones and extracranial soft tissues are unremarkable. Procedure Note Miriam Boss MD - 12/02/2024 MRI BRAIN (PITUITARY) WITH AND WITHOUT CONTRAST Referring clinician's provided indication for this examination in Epic: *Pituitary adenoma, known or suspected TECHNIQUE: Multi-sequence, multi-planar MRI of the pituitary was performedbefore and after intravenous contrast. COMPARISON: Pituitary MRI October 27, 2023. FINDINGS: Sella: There is mild enlargement of the sella. There is a T2 hyperintenseslightly heterogeneous enhancing lesion in the pituitary gland thatmeasures approximately 1 x 1 x 1.2 cm. It is similar in appearance toprevious exam of October 27, 2023. The infundibulum is grossly midline toslightly displaced to the left. There is no mass effect on the opticnerves or optic chiasm. The lesion abuts the right cavernous sinus andright cavernous ICA. Brain: Brain parenchyma is grossly stable in appearance. Scattered fociwith T2 signal prolongation in the periventricular subcortical whitematter, unchanged. No new focus with signal abnormality. No evidence ofacute infarct or hemorrhage. No mass- effect. No hydrocephalus, midline shift, or extra-axial fluid collection. The flow voids of the major visualized arteries are intact. Extracranial Structures: Bones and extracranial soft tissues areunremarkable. IMPRESSION: 1. Pituitary gland heterogeneous enhancing lesion measuring up to 1.2 cm,without significant change, likely representing a pituitarymacroadenoma. 2. No acute intracranial abnormality. Lita Galvez MD [facility] MR HEAD/NECK * IGF-1 (11/17/2024 10:49 AM EST) IGF 1, LC/MS 138 50 - 317 ng/mL [facility], Z Score (Female) 0.0 -2.0 - 2.0 SD [facility], Comment: This test was developed and its analytical performance characteristics have been determined by [facility]. It has not been cleared or approved by FDA. This assay has been validated pursuant to the CLIA regulations and is used for clinical purposes. Blood 11/17/2024 10:4 9 AM EST 11/17/2024 10:49 AM EST Narrative [facility]YNA [facility] - 11/21/2024 3:32 PM EST FASTING:YES FASTING: YES Manfred Torres MD, DSc LAB BLOOD MELISA ANDINO Performing Organization Address [facility] de Phone Number [facility] [facility] [address] [place] [address], [facility] [phone] [facility]/[place] [address] [address] * Prolactin (11/17/2024 10:49 AM EST) [facility] Prolactin 5.4 ng/mL [employer] Comment: ?Reference Range Females ?Non- ?3.0-30.0 ? 10.0-209.0 ?Postmenopausal ?2.0-20.0 ? Blood 11/17/2024 10:4 9 AM EST 11/17/2024 10:49 AM EST Narrative [facility] [facility] - 11/21/2024 3:32 PM EST FASTING:YES FASTING: YES Manfred Torres MD, DSc LAB BLOOD MELISA ANDINO Performing Organization Address [facility] de Phone Number [facility]-[address] [address], [facility] [address] [place] [phone] * TSH (11/17/2024 10:49 AM EST) TSH 3.36 0.40 - 4.50 mIU/L [facility] Blood 11/17/2024 10:4 9 AM EST 11/17/2024 10:49 AM EST Narrative [facility] [employer] [facility] - 11/21/2024 3:32 PM EST FASTING:YES FASTING: YES Manfred Torres MD, Bianca LAB BLOOD ORDKelvin ANDINO Performing Organization Address [facility] Co de Phone Number [facility] [employer]-[address] [place] [address],[place] [address], [facility] [address] [place] [phone] * Free T4 (11/17/2024 10:49 AM EST) T4, free 1.2 0.8 - 1.8 ng/dL [facility] Blood 11/17/2024 10:4 9 AM EST 11/17/2024 10:49 AM EST [facility]-[address] [place] [address] - 11/21/2024 3:32 PM EST FASTING:YES FASTING: YES Manfred Torres MD, DSc LAB BLOOD ORDKelvin ANDINO Performing Organization Address City/[facility]/ZIP Co de Phone Number [facility] [employer]-[address] [place] [address],[place] [address], [facility] [address] [place] [phone] * T4, total (11/17/2024 10:49 AM EST) T4 (Thyroxine), total 5.5 5.1 - 11.9 mcg/dL [facility] Blood 11/17/2024 10:4 9 AM EST 11/17/2024 10:49 AM EST [facility] [facility] - 11/21/2024 3:32 PM EST FASTING:YES FASTING: YES Manfred Torres MD, DSc LAB BLOOD MELISA ANDINO Performing Organization Address [facility] de Phone Number [facility]-[address],[place] [address], [place] [facility] [address] [place] [phone] * FSH (11/17/2024 10:49 AM EST) FSH 36.7 mIU/mL [facility] Comment: ?Reference Range ? Follicular Phase ? 2.5-10.2 ? Mid-cycle Peak ? 3.1-17.7 ? Luteal Phase ? 1.5- 9.1 ? Postmenopausal ? 23.0-116.3 ? Blood 11/17/2024 10:4 9 AM EST 11/17/2024 10:49 AM EST Narrative [facility]-[address] [facility] - 11/21/2024 3:32 PM EST FASTING:YES FASTING: YES Manfred Torres MD, [facility] LAB BLOOD MELISA ANDINO Performing Organization Address [facility] Co de Phone Number [facility]-[address],[place] [address], [facility] [employer] [employer] [address] [place] [phone] * Cortisol (11/17/2024 10:49 AM EST) Cortisol, total 10.4 mcg/dL [facility] [email or web address] Comment: Reference Range: For 8 a.m.(7-9 a.m.) Specimen: 4.0-22.0 Reference Range: For 4 p.m.(3-5 p.m.) Specimen: 3.0-17.0 ??* Please interpret above results accordingly * Blood 11/17/2024 10:4 9 AM EST 11/17/2024 10:49 AM EST Narrative [facility] [facility] - 11/21/2024 3:32 PM EST FASTING:YES FASTING: YES Manfred Torres MD, DSc LAB BLOOD ORDE SINA [facility] [place] [address], [facility] [employer] [address] [place] [phone] * (ABNORMAL) Lipid panel (02/02/2024 8:10 AM EDT) HDL 72 35 - 100 mg/dL [facility] CHOLESTEROL 216(H) <200 mg/dL [facility] TRIGLYCERIDES 111 40 - 150 mg/dL [facility] LDL 122 50 - 129 mg/dL [facility] CARDIAC RISK RATIO 3.0 0.0 - 5.0 [facility] NON-HDL CHOLESTEROL 144 mg/dL [facility] Comment:NCEP ATP III guideli maría elena suggest a non-HDL cholesterol goal 30 mg/dl higher than the patient-specific LDL goal. 02/02/2024 8:10 AM EDT 02/02/2024 1:12 PM EDT Pebbles Keith FINANCE BUSINESS MANAGER LAB BLOOD ORDERABLES [address] [address] * (ABNORMAL) Pap Test (01/23/2024 12:00 AM EDT) 01/23/2024 01/27/2024 11: 04 AM EDT Narrative SEE NARRATIVE - 02/16/2024 6:08 [place] [address] ?? OFFICE CLEANER Cytology Report Patient Name: ??HOLLY ANDERSON : ??1965 (Age: 58) Sex: ??F Institution: ??[facility] Location: ??[facility] Date of Collection: ??01/23/2024 Date of Reported: ??02/16/2024 18:08 Results to: Nena Keith NP FINAL DIAGNOSIS A. ??CERVICAL, LIQUID BASED SPECIMEN: SPECIMEN ADEQUACY: Satisfactory for evaluation. INTERPRETATION: EPITHELIAL CELL ABNORMALITY - SQUAMOUS. Low grade squamous intraepithelial lesion. ADDITIONAL INFORMATION: This specimen was pre-screened using the [employer] Imaging System. ? Electronically Signed Out By: ??Karan Medley MD, PHD Zunilda Castillo [facility] ([facility]) MB By his/her signature above, the pathologist listed as making the Final Diagnosis certifies that he/she has personally reviewed the case and confirmed the diagnosis. All slides and stains were of sufficient quality to establish the diagnosis, unless otherwise stated. Cervical cytology is a screening test primarily for squamous cancers and precursors and has associated false-negative and false-positive results. ??New technologies such as liquid-based preparations may decrease but will not eliminate all false-negative results. ??Regular sampling and follow-up of unexplained clinical signs and symptoms are recommended to minimize false negative results. PROCEDURES/ADDENDA HPV Testing (Requested) Ordered Date: 01/27/2024 ? A. CERVICAL, LIQUID BASED SPECIMEN: ??Human Papilloma Virus Test NEGATIVE for high-risk Human Papilloma Virus types 16, 18, 45 and the Other high risk probe set (Includes 31, 33, 35, 39, 51, 52, 56, 58, 59, 66, 68) Note: Testing performed by [employer] HR-HPV analysis. ??Clinical correlation is advised. ??This HPV test was performed at [facility], [address] [place] [address]. This test has been FDA approved for both SurePath and ThinPrep cervical cytology specimens. The accuracy and precision of this test for all other specimen sources has been verified in the Cytopathology Laboratory of the [facility] and has not been cleared or approved by the U.S. Food and Drug Administration. Clinical correlation is advised. ? CLINICAL HISTORY Date of Last Menstrual Period: 02/03/2020 Menstrual History: Post Menopausal SPECIMEN SOURCE A: CERVICAL, LIQUID BASED SPECIMEN Pebbles Keith NP CYTOLOGY ORDERABLES SEE NARRATIVE * BI MAMMOGRAM SCREENING WITH TOMOSYNTHESIS WITH [...] of the results and recommendations. Pebbles Keith NP IMG MG EXAMS from Last 3 Months or Most Recently Relevant to Health Maintenance Advance Directives For more information, please contact: [phone] (9AM - 5PM [facility], Friday-Friday) * Full Code (Latest Code Status on File) Date Activated Date Inactivated Comments 05/02/2023 7:37 AM Question Answer Comments Code Status Confirmed With: Patient * Full Code (Presumed) Date Activated Date Inactivated Comments 08/17/2018 1:04 PM 08/17/2018 7:16 PM Care Teams Financial Legal Assistant Relationship Specialty Start Date End Date Agustina Pino CNP [address] [place] [address] [email or web address] PCP - General Internal Medicine 07/19/24 Ana Al MBBS [address] [place] [address] [email or web address] Pain Medicine 08/10/24 Additional Source Comments The information contained in this document represents components of the legal health record. It is not the complete legal health record.[facility]
--- OUTSIDE RECORDS SUMMARY | 2025-01-13 13:53 | XMS_ITS | Encounter Summary ---
Author Organization [facility] Address [address] [facility] [address] [place] [address] Phone Care Team Providers Care Community Health Nurse Name Role Phone Pebbles Keith NEUROPSYCHIATRIST Primary Care Provider Pebbles Keith NEUROPSYCHIATRIST Unavailable Pebbles Keith NEUROPSYCHIATRIST Primary Care Provider [phone] Agustina Pino CNP Primary Care Provider [phone] Ana Al MBBS Unavailable [phone] Encounter Details Date Type Department Care Team (Late st Contact Info) Description 12/04/2023 Procedure Pass [address] [place] [address] Social History Tobacco Use Types Packs/Day Years [...] Description 11/15/2025 2:00 PM EST Office Visit [address], [address] [place] [address] Manfred Torres MD, DSc [address] [facility], [address] [place] [address] [email or web address] documented as of this encounter Visit Diagnoses Not on filedocumented in this encounter Additional Health Concerns Assessment Noted Time PHQ-9 Depression Total Score: 1 01/23/20 9:31 AM EDT PHQ-2 Depression Total Score: 0 06/14/20 10:52 AM EDT documented as of this encounter Care Teams Community Health Nurse Relationship Specialty Start Date End Date Pebbles Keith NP [email or web address] PCP - General Nurse Practitioner 08/06/22 12/16/23 Pebbles Keith NP [address] [place] [address] PCP - General Nurse Practitioner 12/17/23 07/18/24 Agustina Pino CNP [address] [place] [address] [email or web address] PCP - General Internal Medicine 07/19/24 Pebbles Keith NP [address] [place] [phone] [email or web address] Insurance Assigned Provider 01/24/24 07/18/24 Ana Al MBBS [address] [place] [address] [email or web address] Pain Medicine 08/10/24 documented as of this encounter Additional Source Comments The information contained in this document represents components of the legal health record. It is not the complete legal health record.[facility]
== END 2025-01-13 10:51 | disposition home or self-care (01) ==
LOC: HO.HNS 10:37
PROVIDERS: Visit Provider Physician Assistant
DX: M54.16 Radiculopathy, lumbar region (principal)
CPT/HCPCS: 99024

== ENCOUNTER → 2025-01-13 10:37 | Outpatient (BNVA) | payer BC, SELFPAY | PROVIDERS: Visit Provider Physician Assistant ==

== ENCOUNTER 2025-02-25 11:26 | Outpatient (AMB) | payer BC, SELFPAY ==
--- NOTE | 2025-02-25 11:45 | A.SPINEOV_ITS ---
Intake Visit Reasons: 2nd post op Intake Note: Ms. Barclay is here today for her 2nd post op. Referral Rn Required: No Allergies CASSY Inhibitors Allergy (Severe, Verified 02/25/25 11:46) Angioedema-hospitalized in medical induced coma bee pollen [bee stings] Allergy (Severe, Verified 02/25/25 11:46) Swelling morphine Allergy (Severe, Verified 02/25/25 11:46) Hives hydromorphone Allergy (Intermediate, Verified 02/25/25 11:46) insomnia/hyperactivity/hot &/or cold flashes oxycodone [From Percocet] Adverse Reaction (Severe, Verified 02/25/25 11:46) hyperactivity clonidine Adverse Reaction (Intermediate, Verified 02/25/25 11:46) extreme fatigue Estrogens Adverse Reaction (Intermediate, Verified 02/25/25 11:46) ? caused hepatic adenoma Assessment & Plan Assessment & Plan (1) Lumbar back pain with radiculopathy affecting left lower extremity: Code(s): M54.16 - Radiculopathy, lumbar region Category: Medical Plan Mrs Barclay is here for second post op visit. She had left L4-[address] Modi. Overall she has been pleased with how things have gone in terms of the left leg pain. She has tried to recently initiate an exercise program trying to get back to some degree of function, but it is ultimately left her feeling in a bit more discomfort. 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 All these things together with likely some deconditioning of the muscles of her posterior chain make me think that she is in need of physical therapy just to get her back to some degree of elevated function. I am going to give a referral to PT. She will take this to the [facility] physical therapy department. She has no specific limitations on RN so she can participate as much as she likes and as much as she tolerates. We can see her back on an as-needed basis if the symptoms of the nerve pain returned. Fran Modi MD, PhD [facility] Orders: Orders PT Evaluation and Treatment Today M54.16 - Radiculopathy, lumbar region Coding Level of Care Code Global (04349) Diagnoses Lumbar back pain with radiculopathy affecting left lower extremity M54.16
--- OUTSIDE RECORDS SUMMARY | 2025-02-25 11:55 | XMS_ITS | Encounter Summary ---
Author Organization [facility] Address [address] [facility] [address] [place] [address] Phone Care Team Providers Care Cutting Table Operator First Name Role Phone Amrita Carranza Primary Care Provider + Janell Wood MD Unavailable [phone] Inge Olsen [facility] Unavailable [phone] Azra Blakely BOMBSIGHT SPECIALIST Primary Care Provider [phone] Pebbles Keith BOMBSIGHT SPECIALIST Primary Care Provider Pebbles Keith BOMBSIGHT SPECIALIST Unavailable [phone] Pebbles Keith BOMBSIGHT SPECIALIST Primary Care Provider [phone] Agustina Pino MEDICAL LAB ASSISTANT Primary Care Provider [phone] Ana Al MBBS Unavailable [phone] Giana Cope BOMBSIGHT SPECIALIST Primary Care Provider Encounter Details Date Type Department Care Team (Late st Contact Info) Description 02/05/2019 Ancillary Orders [facility], X-Ray - [address] [place] [address] Ligia Burnette PA [address] [place] [address] [email or web address] Acute recurrent sinusitis, unspecified location; Sinus pain [...] Care Team (Late st Contact Info) Description 03/25/2025 9:00 AM EDT Office Visit [facility] [address] [place] [address] [place] [address] Virgil Collins MD [address] [place] [address], [address] [address] [email or web address] 04/12/2025 1:30 PM EDT Appointment [facility] - Internal Medicine [address] [place] [address] Agustina Pino CNP [address] [place] [address] [email or web address] 11/15/2025 2:00 PM EST Office Visit [facility] [address] [place] [address], [address] [place] [address] Manfred Torres MD, DSc [address] [facility], [address] [place] [address] [email or web address] documented as of this encounter Results * XR PARANASAL SINUSES 3 OR MORE VIEWS (02/05/2019 4:03 PM EDT) Anatomical Region Laterality Modality Face Radiographic Alyssa ging 02/05/2019 4:41 PM EDT Impressions 02/05/2019 4:43 PM EDT No evidence of sinusitis. POS - [id number] Narrative 02/05/2019 4:43 PM EDT HISTORY: ??As [...] IMPRESSION: No evidence of sinusitis. POS - [id number] Ligia Whitehead Vasile PA IMG XR HEAD AND MARC NT SERIES * XR CHEST PA AND LATERAL 2 VIEWS (02/05/2019 4:02 PM EDT) Anatomical Region Laterality Modality Chest Radiographic Alyssa ging 02/05/2019 4:40 PM EDT Impressions 02/05/2019 4:41 PM EDT No evidence of pneumonia. POS - [id number] Narrative 02/05/2019 4:41 PM EDT HISTORY: ??As [...] IMPRESSION: No evidence of pneumonia. POS - [id number] Ligia ENG IMG XR CHEST documented in [...] documented as of this encounter Care Teams Cutting Table Operator First Relationship Specialty Start Date End Date Amrita Carranza PA [address] [place] [address] [email or web address] PCP - General 11/21/17 12/18/20 Azra Blakely NP [address] [place] [address] [email or web address] PCP - General Family Medicine 12/19/20 08/05/22 Pebbles Keith NP [address] [place] [address] PCP - General Nurse Practitioner 08/06/22 12/16/23 Pebbles Keith NP [address] [place] [address] PCP - General Nurse Practitioner 12/17/23 07/18/24 Agustina Pino CNP [address] [place] [address] [email or web address] PCP - General Internal Medicine 07/19/24 02/21/25 Giana Cope, [place] [address] [place] [address] [email or web address] PCP - General Nurse Practitioner 02/22/25 Janell Wood MD [address] [place] [address] [email or web address] Insurance Assigned Provider 06/20/18 11/23/22 Inge Olsen, [address] [address] [email or web address] Social Work 10/04/19 06/04/21 Pebbles Keith NP [address] [place] [phone] Insurance Assigned Provider 01/24/24 07/18/24 Ana Al MBBS [address] [place] [address] [email or web address] Pain Medicine 08/10/24 documented as of this encounter Additional Source Comments The information contained in this document represents components of the legal health record. It is not the complete legal health record.[facility]
--- OUTSIDE RECORDS SUMMARY | 2025-02-25 11:55 | XMS_ITS | Encounter Summary ---
Author Organization [facility] Address [address] [facility] [address] [place] [address] Phone Care Team Providers Care Stain Dipper Name Role Phone Janell Wood MD Unavailable Pebbles Keith FINISH CARPENTER Primary Care Provider Pebbles Keith FINISH CARPENTER Unavailable Pebbles Keith FINISH CARPENTER Primary Care Provider Agustina Pino CNP Primary Care Provider [phone] Ana Al MBBS Unavailable Giana Cope FINISH CARPENTER Primary Care Provider Encounter Details Date Type Department Care Team (Late st Contact Info) Description 10/30/2022 Procedure Pass [facility] - [facility] [address] [place] [address] Social History Tobacco Use Types Packs/Day Years [...] Office Visit [facility] [address] [place] [address] [place] [address] Virgil Collins MD [address] [place] [address], [facility] [address] [place] [address] [email or web address] 04/12/2025 1:30 PM EDT Appointment [facility] - Internal Medicine [address] [place] [address] Agustina iPno CNP [address] [place] [address] [email or web address] 11/15/2025 2:00 PM EST Office Visit [address], [address] [place] [address] Manfred Torres MD, DSc [address] [facility], [facility] 140 [place] [address] [email or web address] documented as of this encounter Visit Diagnoses Not on filedocumented in this encounter Additional Health Concerns Infection Onset Date Last Indicated Resolved Time CoV-Risk 10/30/2022 10/30/2022 11/10/2022 1:22 AM EST Assessment Noted Time PHQ-2 Depression Total Score: 0 08/03/20 1:42 PM EDT documented as of this encounter Care Teams Stain Dipper Relationship Specialty Start Date End Date Pebbles Keith NP [address] [place] [address] [place] [address] [email or web address] PCP - General Nurse Practitioner 08/06/22 12/16/23 Pebbles Keith NP [address] [place] [address] PCP - General Nurse Practitioner 12/17/23 07/18/24 Agustina Pino CNP [address] [place] [address] PCP - General Internal Medicine 07/19/24 02/21/25 Giana Cope, [place] [address] [place] [address] [email or web address] PCP - General Nurse Practitioner 02/22/25 Janell Wood MD [address] [place] [address] [email or web address] Insurance Assigned Provider 06/20/18 11/23/22 Pebbles Keith NP [address] [place] [phone] Insurance Assigned Provider 01/24/24 07/18/24 Ana Al MBBS [address] [place] [address] [email or web address] Pain Medicine 08/10/24 documented as of this encounter Additional Source Comments The information contained in this document represents components of the legal health record. It is not the complete legal health record.[facility]
--- OUTSIDE RECORDS SUMMARY | 2025-02-25 11:55 | XMS_ITS | Encounter Summary ---
Author Organization [facility] Address [address] [facility] [address] [place] [address] Phone Care Team Providers Care Mat Worker Name Role Phone Agustina Pino STITCH BONDING MACHINE TENDER HELPER Primary Care Provider Ana Al MBBS Unavailable [phone] Giana Cope NP Primary Care Provider Encounter Details Date Type Department Care Team (Late st Contact Info) Description 07/22/2024 Transcribe Orders [facility] [place] [facility] Admissions Department - Virtual Department [address] [place] [address] Rell Washington MD [address] [place] [address] Social History Tobacco Use Types Packs/Day Years [...] high school, GED, job training, learning the Pakistani language, technical skills, or developing parenting skills)? [...] Office Visit [facility] [address] [place] [address] [place] [address] Virgil Collins MD [address] [place] [address], [facility] [address] [place] [address] [email or web address] 04/12/2025 1:30 PM EDT Appointment [facility] - Internal Medicine [address] [place] [address] Agustina Pino CNP [address] [place] [address] [email or web address] 11/15/2025 2:00 PM EST Office Visit [address], [address] [place] [address] Manfred Torres MD, DSc [address] [facility], [facility] 140 [place] [address] [email or web address] documented as of this encounter Visit Diagnoses Not on filedocumented in this encounter Additional Health Concerns Assessment Noted Time PHQ-9 Depression Total Score: 1 01/23/20 9:31 AM EDT PHQ-2 Depression Total Score: 0 06/14/20 10:52 AM EDT documented as of this encounter Care Teams Mat Worker Relationship Specialty Start Date End Date Agustina Pino CNP [address] [place] [address] [email or web address] PCP - General Internal Medicine 07/19/24 02/21/25 Giana Cope NP [address] [address] [email or web address] PCP - General Nurse Practitioner 02/22/25 Ana Al MBBS [address] [place] [address] [email or web address] Pain Medicine 08/10/24 documented as of this encounter Additional Source Comments The information contained in this document represents components of the legal health record. It is not the complete legal health record.[facility]
--- OUTSIDE RECORDS SUMMARY | 2025-02-25 11:55 | XMS_ITS | Encounter Summary ---
Author Organization [facility] Address [address] [facility] [address] [place] [address] Phone Care Team Providers Care Geodetic Surveyor Technologist Name Role Phone Amrita Carranza Primary Care Provider + Janell Wood MD Unavailable [phone] Inge Olsen [facility] Unavailable [phone] Azra Blakely CHASSIS INSPECTOR Primary Care Provider Pebbles Keith CHASSIS INSPECTOR Primary Care Provider Pebbles Keith CHASSIS INSPECTOR Unavailable [phone] Pebbles Keith CHASSIS INSPECTOR Primary Care Provider [phone] Agustina Pino ASSISTANT MEDIA BUYER Primary Care Provider [phone] Ana Al MBBS Unavailable [phone] Giana Cope CHASSIS INSPECTOR Primary Care Provider Encounter Details Date Type Department Care Team (Late st Contact Info) Description 08/17/2018 Procedure Pass [place] Admitting Dept - [facility] Department [address] [place] [address] Social History Tobacco Use Types Packs/Day Years [...] Office Visit [facility] [address] [place] [address] [place] [address] Virgil Collins MD [address] [place] [address], [address] [address] [email or web address] 04/12/2025 1:30 PM EDT Appointment [facility] - Internal Medicine [address] [place] [address] Agustina Pino CNP [address] [place] [address] [email or web address] 11/15/2025 2:00 PM EST Office Visit [address], [address] [place] [address] Manfred Torres MD, DSc [address] [place] [address] [email or web address] documented as of this encounter Visit Diagnoses Not on filedocumented in this encounter Additional Health Concerns Infection Onset Date Last Indicated Resolved Time CoV-Risk 10/30/2022 10/30/2022 11/10/2022 1:22 AM EST documented as of this encounter Care Teams Geodetic Surveyor Technologist Relationship Specialty Start Date End Date Amrita Carranza PA [address] [place] [address] [email or web address] PCP - General 11/21/17 12/18/20 Azra Blakely CHASSIS INSPECTOR [address] [address] [email or web address] PCP - General Family Medicine 12/19/20 08/05/22 Pebbles Keith NP [address] [address] PCP - General Nurse Practitioner 08/06/22 12/16/23 Pebbles Keith NP [address] [place] [address] PCP - General Nurse Practitioner 12/17/23 07/18/24 Agustina Pino CNP [address] [place] [address] PCP - General Internal Medicine 07/19/24 02/21/25 Giana Cope NP [address] [address] [email or web address] PCP - General Nurse Practitioner 02/22/25 Janell Wood MD [address] [place] [address] Insurance Assigned Provider 06/20/18 11/23/22 Inge Olsen, [address] [address] iCMP Social Work 10/04/19 06/04/21 Pebbles Keith NP [address] [place] [phone] [email or web address] Insurance Assigned Provider 01/24/24 07/18/24 Ana Al MBBS [address] [place] [address] [email or web address] Pain Medicine 08/10/24 documented as of this encounter Additional Source Comments The information contained in this document represents components of the legal health record. It is not the complete legal health record.[facility]
--- OUTSIDE RECORDS SUMMARY | 2025-02-25 11:55 | XMS_ITS | Encounter Summary ---
Author Organization [facility] Address [address] [facility] [address] [place] [address] Phone Care Team Providers Care Credit Assessment Analyst Name Role Phone Janell Wood MD Unavailable Pebbles Keith AIRCRAFT PNEUDRAULICS REPAIRER Primary Care Provider Pebbles Keith AIRCRAFT PNEUDRAULICS REPAIRER Unavailable Pebbles Keith AIRCRAFT PNEUDRAULICS REPAIRER Primary Care Provider [phone] Agustina Pino CNP Primary Care Provider Ana lA MBBS Unavailable [phone] Giana Cope AIRCRAFT PNEUDRAULICS REPAIRER Primary Care Provider Encounter Details Date Type Department Care Team (Late st Contact Info) Description 10/24/2022 Procedure Pass [facility] - Mammo [address] [place] [address] Social History Tobacco Use Types Packs/Day Years [...] Office Visit [facility] [address] [place] [address] Dr [place]FUS [address] Virgil Collins MD [address] [place] [address], [facility] [address] [place] [address] 04/12/2025 1:30 PM EDT Appointment [facility] - Internal Medicine [address] [place] [address] Agustina Pino CNP [address] [place] [address] [email or web address] 11/15/2025 2:00 PM EST Office Visit [address], [facility] 140 [place] [address] Manfred Torres MD, DSc [address] [place] [address], [address] [address] [email or web address] documented as of this encounter Visit Diagnoses Not on filedocumented in this encounter Additional Health Concerns Infection Onset Date Last Indicated Resolved Time CoV-Risk 10/30/2022 10/30/2022 11/10/2022 1:22 AM EST Assessment Noted Time PHQ-2 Depression Total Score: 0 08/03/20 1:42 PM EDT documented as of this encounter Care Teams Credit Assessment Analyst Relationship Specialty Start Date End Date Pebbles Keith NP [address] [place] [address] [email or web address] PCP - General Nurse Practitioner 08/06/22 12/16/23 Pebbles Keith NP [address] [place] [address] PCP - General Nurse Practitioner 12/17/23 07/18/24 Agustina Pino CNP [address] [place] [address] PCP - General Internal Medicine 07/19/24 02/21/25 Giana Cope, [place] [address] [place] [address] [email or web address] PCP - General Nurse Practitioner 02/22/25 Janell Wood MD [address] [place] [address] [email or web address] Insurance Assigned Provider 06/20/18 11/23/22 Pebbles Keith NP [address] [place] [phone] Insurance Assigned Provider 01/24/24 07/18/24 Ana Al MBBS [address] [place] [address] [email or web address] Pain Medicine 08/10/24 documented as of this encounter Additional Source Comments The information contained in this document represents components of the legal health record. It is not the complete legal health record.[facility]
--- OUTSIDE RECORDS SUMMARY | 2025-02-25 11:55 | XMS_ITS | Encounter Summary ---
Author Organization [facility] Address [address] [place] [address] Phone Care Team Providers Care Coil Winding Machines Set Up Mechanic Name Role Phone Pebbles Keith YOUNG ADULT LIBRARIAN Unavailable Pebbles Keith YOUNG ADULT LIBRARIAN Primary Care Provider Agustina Pino CNP Primary Care Provider [phone] Ana Al Unavailable [phone] Giana Cope YOUNG ADULT LIBRARIAN Primary Care Provider Encounter Details Date Type Department Care Team (Late st Contact Info) Description 06/04/2024 Ancillary Orders [facility] [address], [address] [place] [address] Ana Al MBBS 15 [place] [address] [email or web address] Other chronic pain (Primary Dx) Social History [...] high school, GED, job training, learning the Kyrgyz language, technical skills, or developing parenting skills)? [...] Office Visit [facility] [address] [place] [address] [place] [address] Virgil Collins MD [address] [place] [address], [address] [place] [address] 04/12/2025 1:30 PM EDT Appointment [facility] - Internal Medicine [address] [place] [address] Agustina Pino, BENEFITS ADVISOR [address] [place] [address] 11/15/2025 2:00 PM EST Office Visit [address], [address] [place] [address] Manfred Torres MD, DSc 100 [facility], [facility] 140 [place] [address] [email or web address] Pending Results Name Type Priority Associated Diagnoses [...] documented as of this encounter Care Teams Coil Winding Machines Set Up Mechanic Relationship Specialty Start Date End Date Pebbles Keith NP [address] [place] [address] [email or web address] PCP - General Nurse Practitioner 12/17/23 07/18/24 Agustina Pino CNP [address] [place] [address] [email or web address] PCP - General Internal Medicine 07/19/24 02/21/25 Giana Cope, [place] [address] [place] [address] [email or web address] PCP - General Nurse Practitioner 02/22/25 Pebbles Keith NP [address] [place] [phone] [email or web address] Insurance Assigned Provider 01/24/24 07/18/24 Ana Al MBBS 15 [place] [address] [email or web address] Pain Medicine 08/10/24 documented as of this encounter Additional Source Comments The information contained in this document represents components of the legal health record. It is not the complete legal health record.[facility]
--- OUTSIDE RECORDS SUMMARY | 2025-02-25 11:55 | XMS_ITS | Encounter Summary ---
Author Organization [facility] Address [address] [facility] [address] [place] [address] Phone Care Team Providers Care Lead Retail Sales Associate Name Role Phone Pebbles Keith RIGGING LOFT REPAIRER Unavailable Pebbles Keith RIGGING LOFT REPAIRER Primary Care Provider Agustina Pino CUSTOMER SERVICE CASHIER Primary Care Provider Ana AlBS Unavailable Giana Cope RIGGING LOFT REPAIRER Primary Care Provider Encounter Details Date Type Department Care Team (Late st Contact Info) Description 06/11/2024 Procedure Pass [facility] Periop [address] [place] [address] Social History Tobacco Use Types Packs/Day Years [...] high school, GED, job training, learning the [place]ian language, technical skills, or developing parenting skills)? [...] Description 03/25/2025 9:00 AM EDT Office Visit [facility] [address] [place] [address] Dr Ornelas, [place] [address] Virgil Collins MD [address] [place] [address], [facility] 102 [place] [address] 04/12/2025 1:30 PM EDT Appointment [facility] - Internal Medicine [address] [place] [address] Agustina Pino, CUSTOMER SERVICE CASHIER [address] [place] [address] 11/15/2025 2:00 PM EST Office Visit [address], [address] [place] [address] Manfred Torres MD, DSc 100 [facility], [facility] 140 [place] [address] [email or web address] documented as of this encounter Visit Diagnoses Not on filedocumented in this encounter Additional Health Concerns Assessment Noted Time PHQ-9 Depression Total Score: 1 01/23/20 9:31 AM EDT PHQ-2 Depression Total Score: 1 01/23/20 9:31 AM EDT documented as of this encounter Care Teams Lead Retail Sales Associate Relationship Specialty Start Date End Date Pebbles Keith NP [address] [place] [address] PCP - General Nurse Practitioner 12/17/23 07/18/24 Agustina Pino CNP [address] [place] [address] PCP - General Internal Medicine 07/19/24 02/21/25 Giana Cope NP [address] [address] [email or web address] PCP - General Nurse Practitioner 02/22/25 Pebbles Keith NP [address] [place] [phone] Insurance Assigned Provider 01/24/24 07/18/24 Ana Al MBBS 15 [place] [address] [email or web address] Medicine 08/10/24 documented as of this encounter Additional Source Comments The information contained in this document represents components of the legal health record. It is not the complete legal health record.[facility]
--- OUTSIDE RECORDS SUMMARY | 2025-02-25 11:55 | XMS_ITS | Encounter Summary ---
Author Organization [facility] Address [address] [facility] [address] [place] [address] Phone Care Team Providers Care Surgeon Chief Name Role Phone Pebbles Keith COOLER SUPERVISOR Primary Care Provider Pebbles Keith COOLER SUPERVISOR Unavailable [phone] Pebbles Keith COOLER SUPERVISOR Primary Care Provider Agustina Pino PSYCHOLOGICAL OPERATIONS SPECIALIST Primary Care Provider Ana Al MBBS Unavailable [phone] Giana Cope COOLER SUPERVISOR Primary Care Provider Encounter Details Date Type Department Care Team (Late st Contact Info) Description 08/14/2023 Procedure Pass [facility] Imaging - MR [address] [place] [address] Social History Tobacco Use Types Packs/Day Years [...] Office Visit [facility] [address] [place] [address] [place] [address] Virgil Collins MD [address] [place] [address] [email or web address] 04/12/2025 1:30 PM EDT Appointment [facility] - Internal Medicine 57 [place] [address] Agustina Pino, PSYCHOLOGICAL OPERATIONS SPECIALIST 57 [place] [address] [email or web address] 11/15/2025 2:00 PM EST Office Visit [facility] [address] [place] [address], [facility] 140 [place] [address] Manfred Torres MD, DSc 100 [facility], [address] [place] [address] [email or web address] documented as of this encounter Visit Diagnoses Not on filedocumented in this encounter Additional Health Concerns Assessment Noted Time PHQ-2 Depression Total Score: 0 08/03/20 22 1:42 PM EDT documented as of this encounter Care Teams Surgeon Chief Relationship Specialty Start Date End Date Pebbles Keith NP PCP - General Nurse Practitioner 08/06/22 12/16/23 Pebbles Keith, [place] [address] [place] [address] [email or web address] PCP - General Nurse Practitioner 12/17/23 07/18/24 Agustina Pino PSYCHOLOGICAL OPERATIONS SPECIALIST [address] [place] [address] [email or web address] PCP - General Internal Medicine 07/19/24 02/21/25 Giana Cope, [place] [address] [place] [address] [email or web address] PCP - General Nurse Practitioner 02/22/25 Pebbles Keith NP [address] [place] [phone] [email or web address] Insurance Assigned Provider 01/24/24 07/18/24 Ana Al MBBS [address] [place] [address] [email or web address] u Pain Medicine 08/10/24 documented as of this encounter Additional Source Comments The information contained in this document represents components of the legal health record. It is not the complete legal health record.[facility]
--- OUTSIDE RECORDS SUMMARY | 2025-02-25 11:55 | XMS_ITS | Encounter Summary ---
Author Organization [facility] Address [address] [facility] [address] [place] [address] Phone Care Team Providers Care Engraver Picture Name Role Phone Pebbles Keith DOCTOR OF DENTAL MEDICINE Primary Care Provider Pebbles Keith DOCTOR OF DENTAL MEDICINE Unavailable [phone] Pebbles Keith DOCTOR OF DENTAL MEDICINE Primary Care Provider [phone] Agustina Pino NET MAKING SUPERVISOR Primary Care Provider Ana Al MBBS Unavailable Giana Cope DOCTOR OF DENTAL MEDICINE Primary Care Provider Encounter Details Date Type Department Care Team (Late st Contact Info) Description 10/06/2023 Procedure Pass [facility] Imaging - MR [address] [place] [address] Social History Tobacco Use Types Packs/Day Years [...] Office Visit [facility] [address] [place] [address] [place] [address] Virgil Collins MD [address] [place] [address] [email or web address] 04/12/2025 1:30 PM EDT Appointment [facility] - Internal Medicine 57 [place] [address] Agustina Pino, NET MAKING SUPERVISOR 57 [place] [address] [email or web address] 11/15/2025 2:00 PM EST Office Visit [facility] [address] [place] [address], [facility] 140 [place] [address] Manfred Torres MD, DSc 100 [facility], [address] [place] [address] [email or web address] documented as of this encounter Visit Diagnoses Not on filedocumented in this encounter Additional Health Concerns Assessment Noted Time PHQ-2 Depression Total Score: 0 08/03/20 22 1:42 PM EDT documented as of this encounter Care Teams Engraver Picture Relationship Specialty Start Date End Date Pebbles Keith NP PCP - General Nurse Practitioner 08/06/22 12/16/23 Pebbles Keith, [place] [address] [place] [address] [email or web address] PCP - General Nurse Practitioner 12/17/23 07/18/24 Agustina Pino NET MAKING SUPERVISOR [address] [place] [address] [email or web address] PCP - General Internal Medicine 07/19/24 02/21/25 Giana Cope, [place] [address] [place] [address] [email or web address] PCP - General Nurse Practitioner 02/22/25 Pebbles Keith NP [address] [place] [phone] [email or web address] Insurance Assigned Provider 01/24/24 07/18/24 Ana Al MBBS [address] [place] [address] [email or web address] Pain Medicine 08/10/24 documented as of this encounter Additional Source Comments The information contained in this document represents components of the legal health record. It is not the complete legal health record.[facility]
--- OUTSIDE RECORDS SUMMARY | 2025-02-25 11:55 | XMS_ITS | Clinical Summary ---
Author Organization [facility] Address [address] [facility] [place] [address] Phone Care Team Providers Care Plastic Fabricator Name Role Phone Agustina Pino NP Primary Care Provider [phone] Allergies Active Allergy Reactions Criticality Noted Date Comments Bee Venom Protein (Honey Bee) Swelling 2024 Hydromorphone Hypersensitivity 01/27/2025 Estrogens 01/27/2025 Lisinopril Anaphylaxis High 01/27/2025 Morphine Hives,Itching 01/20/2025 Oxycodone Hypersensitivity 01/27/2025 Medications traZODone (DESYREL) 50 mg tablet Take 1-2 tablets (50-100 mg total) by mouth at bedtime as needed. Active fexofenadine/pseu doephedrine (ALLERGY RELIEF D ORAL) Take 1 tablet by mouth at bedtime. Active amphetamine-dextr oamphetamine XR (ADDERALL XR) 5 mg 24 hr capsule Take by mouth. 2 tablets in the am, 1 tablet nightly Active PSYLLIUM HUSK ORAL Take 1,500 mg by mouth 3 (three) times a day. Active cyanocobalamin (Vitamin B-12) 1,000 mcg tablet Take 1 tablet (1,000 mcg total) by mouth 1 (one) time each day. Active cholecalciferol (VITAMIN D-3) 25 mcg (1,000 unit) tablet Take 1 tablet (1,000 Units total) by mouth 1 (one) time each day. Active hydrALAZINE (APRESOLINE) 25 mg tabletIndications :Essential hypertension Take 1 tablet (25 mg total) by mouth 3 (three) times a day. 180 each 3 5 01/28/20 26 Active Active Problems Problem Noted Date Diagnosed Date Essential hypertension 01/20/2025 Assessment & Plan (01/27/2025 12:00 PM EDT): Patient's blood pressure has been elevated. She has had a fairly decent evaluation for secondary causes of hypertension. However the things that has not been evaluated sleep apnea as a possible cause she does have symptoms consistent with that. I will order home sleep study. She has not been on hydralazine or spironolactone. We are shukri start her off on 25 twice daily of hydralazine and see if she will tolerate it. Back in a few weeks for pressures better and she is tolerating it and needs additional therapy we can either upped the dose of the hydralazine or potentially add spironolactone. Orders: Ambulatory referral to Cardiology ECG 12 lead hydrALAZINE (APRESOLINE) 25 mg tablet; Take 1 tablet (25 mg total) by mouth 3 (three) times a day. Ambulatory referral to Sleep Medicine; Future Encounters Date Type Department Care Team Description 01/27/2025 10:20 AM EDT Office Visit [facility] [address] [place] [address] Nacho Parker MD Essential hypertension from Last 3 Months Medical History Medical History Date Comments Anxiety Arthritis Asthma Fibromyalgia Hypertension Pituitary macroadenoma ([facility] V24, [facility] V28 ) Social History Tobacco Use Types Packs/Day Years Used Date Smoking Tobacco: Never Smokeless Tobacco: Never Tobacco Cessation:Counseling Given: Not Answered Alcohol Use Standard Drinks/Week Comments Yes 0 (1 standard drink = 0.6 oz pur e alcohol) occasional Comments Unknown Sex and Gender Information Value Date Recorded Sex Assigned at Not on file Legal Sex Female 12:57 PM EDT Gender Identity Not on file Sexual Orientation Not on file Obstetrics History Last Filed Vital Signs Vital Sign Reading Time Taken Comments Blood Pressure 152/80 01/27/2025 10:15 AM EDT Pulse 90 01/27/2025 10:15 AM EDT Temperature - - Respiratory Rate - - Oxygen Saturation 96% 01/27/2025 10: 15 AM EDT Inhaled Oxygen Concentration - - Weight 82.9 kg (182 lb 11.2 oz) 025 10:15 AM EDT Height 160 cm (5' 3 ) 01/27/2025 10:15 AM EDT Body Mass Index 32.36 01/27/2025 10:15 AM EDT Plan of Treatment Upcoming Encounters Date Type Department Care Team (Late st Contact Info) Description 03/04/2025 10:00 AM EDT Office Visit [facility] [address] [place] [address] Nacho Parker MD [address] [place] [address] [address] [place] [address] Health Maintenance Due Date Last Done Comments Hepatitis A Vaccines (1 of 2 - Risk 2-dose series) 1986 Hepatitis B Vaccines (1 of 3 - 19+ 3-dose series) 1986 Cervical Cancer Screening: Pap Smear 1988 Pneumococcal Vaccine: 50+ Years (2 of 2 - PCV) 01/17/2022 01/17/2021 Pneumococcal Vaccine: Pediatrics (0 to 5 Years) and At-Risk Patients (6 to 64 Years) (2 of 2 - PCV) 01/17/2022 01/17/2021 Colorectal Cancer Screening: Colonoscopy 11/13/2024 HIV Screening 11/13/2024 Hepatitis C Screening 11/13/2024 Social Influencers of Health Screening 11/13/2024 Depression Screening 01/22/2025 01/23/2024 Hypertension/CHF/CAD Annual BMP Blood Test 02/01/2025 02/02/2024, 10/30/2022, 10/05/2022, Additional history exists Breast Cancer Screening 11/14/2025 11/14/2023 Cholesterol Screening (Lipid Panel) 02/01/2029 02/02/2024 DTaP,Tdap,and Td Vaccines (2 - Td or Tdap) 05/22/2032 05/22/2022 Zoster Vaccines Completed 07/30/2021, 05/30/2021 COVID-19 Vaccine Completed 07/24/2024, , 12/04/2020, Additional history exists Influenza Vaccine Completed 07/24/2024, , 08/06/2022, Additional history exists HIB Vaccines Aged Out No longer eligi [...] age to complete this topic Meningococcal B Vaccine Aged Out No l onger eligible based on patient's age to complete this topic RSV Immunization Patients Under 20 months Aged Out No longer eligible based on patient's age to complete this topic Varicella Vaccines Aged Out No longer eligible based on patient's age to complete this topic Procedures Procedure Name Priority Date/Time Associated Diagnosis Comments ECG 12-LEAD Routine 01/27/2025 10:28 AM EDT Essential hypertension from Last 3 Months Results * ECG 12 lead (01/27/2025 10:28 AM EDT) Ventricular Rate ECG 87 BPM GEMUSE Atrial Rate 87 BPM GEMUSE P-R Interval 150 ms GEMUSE QRS Duration 78 ms GEMUSE Q-T Interval 372 ms GEMUSE QTc 447 ms GEMUSE P Wave Highland 53 degrees GEMUSE R [place] 52 degrees GEMUSE T [place] 30 degrees GEMUSE ECG Interpretation Normal sinus rhythm Normal ECG No previous ECGs available Confirmed by Akua PARKER, NACHO ([id number]) on 01/27/2025 11:54:19 AM GEMUSE 01/27/2025 10:2 8 AM EDT 01/27/2025 11:54 AM EDT us Nacho Parker MD ECG ORDERABLES Final Result GEMUSE from Last 3 Months Insurance [facility] Care Teams Plastic Fabricator Relationship Specialty Start Date End Date Agustina Pino NP [address] [place] [address] PCP - General 01/31/25
--- OUTSIDE RECORDS SUMMARY | 2025-02-25 11:55 | XMS_ITS | Encounter Summary ---
Author Organization [facility] Address [address] [facility] [address] [place] [address] Phone Care Team Providers Care Dialysis Clinical Manager Name Role Phone Pebbles Keith WARDROBE TECHNICIAN Primary Care Provider Pebbles Keith WARDROBE TECHNICIAN Unavailable [phone] Pebbles Keith WARDROBE TECHNICIAN Primary Care Provider Agustina Pino PROTEIN SCIENTIST Primary Care Provider Ana Al MBBS Unavailable Giana Cope WARDROBE TECHNICIAN Primary Care Provider Encounter Details Date Type Department Care Team (Latest Contact Info) Description 02/05/2023 Ancillary Orders [facility] Cardiac Echo 57 [place] [address] Rell Washington MD 25 [place] [address] Essential hypertension Social History Tobacco Use Types [...] Office Visit [facility] [address] [place] [address] [place] [address] Virgil Collins MD [address] [place] [address] 102 [place] [address] [email or web address] 04/12/2025 1:30 PM EDT Appointment [facility] - Internal Medicine [address] [place] [address] Agustina Pino CNP [address] [place] [address] [email or web address] 11/15/2025 2:00 PM EST Office Visit [facility] [address] [place] [address], [facility] 140 [place] [address] Manfred Torres MD, DSc [address] [place] [address], [facility] 140 [place] [address] [email or web address] documented as of this encounter Visit Diagnoses Diagnosis Essential hypertension Unspecified essential hypertension documented in this encounter Additional Health Concerns Assessment Noted Time PHQ-2 Depression Total Score: 0 08/03/20 1:42 PM EDT documented as of this encounter Care Teams Dialysis Clinical Manager Relationship Specialty Start Date End Date Pebbles Keith NP PCP - General Nurse Practitioner 08/06/22 12/16/23 Pebbles Keith NP [address] [place] [address] PCP - General Nurse Practitioner 12/17/23 07/18/24 Agustina Pino CNP [address] [place] [address] PCP - General Internal Medicine 07/19/24 02/21/25 Giana Cope, [place] [address] [place] [address] [email or web address] PCP - General Nurse Practitioner 02/22/25 Pebbles Keith, [place] [address] [place] [phone] Insurance Assigned Provider 01/24/24 07/18/24 Ana Al MBBS 15 [place] [address] [email or web address] Medicine 08/10/24 documented as of this encounter Additional Source Comments The information contained in this document represents components of the legal health record. It is not the complete legal health record.[facility]
--- OUTSIDE RECORDS SUMMARY | 2025-02-25 11:55 | XMS_ITS | Encounter Summary ---
Author Organization [facility] Address [address] [facility] [address] [facility] [address] [place] [address] Phone Care Team Providers Care Cork Sorter Name Role Phone Pebbles Keith SOFTWARE LEAD Primary Care Provider Pebbles Keith SOFTWARE LEAD Unavailable [phone] Pebbles Keith SOFTWARE LEAD Primary Care Provider Agustina Pino OUTGOING INSPECTOR Primary Care Provider Ana Al MBBS Unavailable Giana Cope SOFTWARE LEAD Primary Care Provider Encounter Details Date Type Department Care Team (Late st Contact Info) Description 03/20/2023 Procedure Pass [facility] Imaging - MR [address] [place] [address] Social History Tobacco Use Types Packs/Day Years [...] Office Visit [facility] [address] [place] [address] [place] [address] Virgil Collins MD [address] [place] [address] 04/12/2025 1:30 PM EDT Appointment [facility] - Internal Medicine [address] [place] [address] Agustina Pino, OUTGOING INSPECTOR [address] [place] [address] [email or web address] 11/15/2025 2:00 PM EST Office Visit [facility] [address] [place] [address], [address] [address] Manfred Torres MD, DSc [address] [place] [address], [address] [address] [email or web address] documented as of this encounter Visit Diagnoses Not on filedocumented in this encounter Additional Health Concerns Assessment Noted Time PHQ-2 Depression Total Score: 0 08/03/20 22 1:42 PM EDT documented as of this encounter Care Teams Cork Sorter Relationship Specialty Start Date End Date Pebbles Keith NP PCP - General Nurse Practitioner 08/06/22 12/16/23 Pebbles Keith, SOFTWARE LEAD [address] [place] [address] [email or web address] PCP - General Nurse Practitioner 12/17/23 07/18/24 Agustina Pino OUTGOING INSPECTOR [address] [place] [address] [email or web address] PCP - General Internal Medicine 07/19/24 02/21/25 Giana Cope, [place] [address] [place] [address] [email or web address] PCP - General Nurse Practitioner 02/22/25 Pebbles Keith, SOFTWARE LEAD [address] [place] [phone] [email or web address] Insurance Assigned Provider 01/24/24 07/18/24 Ana Al MBBS [address] [place] [address] [email or web address] Pain Medicine 08/10/24 documented as of this encounter Additional Source Comments The information contained in this document represents components of the legal health record. It is not the complete legal health record.[facility]
--- OUTSIDE RECORDS SUMMARY | 2025-02-25 11:55 | XMS_ITS | Encounter Summary ---
Author Organization [facility] Address [address] [place] [address] Phone Care Team Providers Care Director Agency & Strategic Partnerships Name Role Phone Janell Wood MD Unavailable [phone] Pebbles Keith MANAGER IMAGING Primary Care Provider Pebbles Keith MANAGER IMAGING Unavailable [phone] Pebbles Keith MANAGER IMAGING Primary Care Provider [phone] Agustina Pino CNP Primary Care Provider [phone] Ana Al MBBS Unavailable Giana Cope MANAGER IMAGING Primary Care Provider Encounter Details Date Type Department Care Team (Late st Contact Info) Description 08/06/2022 Procedure Pass Imaging - Mammo [address] [place] [address] Social History Tobacco Use Types Packs/Day Years [...] Office Visit [facility] [address] [place] [address] [place] [address] Virgil Collins MD [address] [place] [address], [facility] [address] [place] [address] [email or web address] 04/12/2025 1:30 PM EDT Appointment [facility] - Internal Medicine [address] [place] [address] Agustina Pino CNP [address] [place] [address] [email or web address] 11/15/2025 2:00 PM EST Office Visit [address], [address] [place] [address] Manfred Torres MD, DSc [address] [place] [address], [facility] [address] [place] [address] [email or web address] documented as of this encounter Visit Diagnoses Not on filedocumented in this encounter Additional Health Concerns Infection Onset Date Last Indicated Resolved Time CoV-Risk 10/30/2022 10/30/2022 11/10/2022 1:22 AM EST Assessment Noted Time PHQ-2 Depression Total Score: 0 08/03/20 1:42 PM EDT documented as of this encounter Care Teams Director Agency & Strategic Partnerships Relationship Specialty Start Date End Date Pebbles Keith NP [address] [place] [address] [email or web address] PCP - General Nurse Practitioner 08/06/22 12/16/23 Pebbles Keith NP 57 [place] [address] PCP - General Nurse Practitioner 12/17/23 07/18/24 Agustina Pino CNP [address] [place] [address] PCP - General Internal Medicine 07/19/24 02/21/25 Giana Cope, [place] [address] [place] [address] [email or web address] PCP - General Nurse Practitioner 02/22/25 Janell Wood MD [address] [place] [address] [email or web address] Insurance Assigned Provider 06/20/18 11/23/22 Pebbles Keith NP [address] [place] [phone] Insurance Assigned Provider 01/24/24 07/18/24 Ana Al MBBS [address] [place] [address] [email or web address] Pain Medicine 08/10/24 documented as of this encounter Additional Source Comments The information contained in this document represents components of the legal health record. It is not the complete legal health record.[facility]
--- OUTSIDE RECORDS SUMMARY | 2025-02-25 11:55 | XMS_ITS | Encounter Summary ---
Author Organization [facility] Address [address] [facility] [address] [place] [address] Phone Care Team Providers Care Marriage Therapist Name Role Phone Pebbles Keith RAMP LEAD Primary Care Provider Pebbles Keith RAMP LEAD Unavailable Pebbles Keith RAMP LEAD Primary Care Provider [phone] Agustina Pino CNP Primary Care Provider [phone] Ana Al MBBS Unavailable Giana Cope RAMP LEAD Primary Care Provider Encounter Details Date Type Department Care Team (Late st Contact Info) Description 11/17/2023 Ancillary Orders [facility] Imaging - Mammo 57 [place] [address] Pebbles Keith NP 57 [place] [phone] Screening mammogram for breast cancer (Primary Dx) [...] Office Visit [facility] [address] [place] [address] [place] [address] Virgil Collins MD [address] [place] [address], [address] [place] [address] [email or web address] 04/12/2025 1:30 PM EDT Appointment [facility] - Internal Medicine [address] [place] [address] Agustina Pino CNP 57 [place] [address] 11/15/2025 2:00 PM EST Office Visit [facility] [address] [place] [address], [address] [place] [address] Manfred Torres MD, DSc [address] [facility], [address] [place] [address] [email or web address] documented as of this encounter Visit Diagnoses Diagnosis Screening mammogram for breast cancer- Primary documented in this encounter Additional Health Concerns Assessment Noted Time PHQ-2 Depression Total Score: 0 08/03/20 1:42 PM EDT documented as of this encounter Care Teams Marriage Therapist Relationship Specialty Start Date End Date Pebbles Keith, RAMP LEAD PCP - General Nurse Practitioner 08/06/22 12/16/23 Pebbles Keith, RAMP LEAD [address] [place] [address] PCP - General Nurse Practitioner 12/17/23 07/18/24 Agustina Pino CNP [address] [place] [address] [email or web address] PCP - General Internal Medicine 07/19/24 02/21/25 Giana Cope, [place] [address] [place] [address] [email or web address] PCP - General Nurse Practitioner 02/22/25 Pebbles Keith, RAMP LEAD [address] [place] [phone] Insurance Assigned Provider 01/24/24 07/18/24 Ana Al MBBS 15 [place] [address] [email or web address] Pain Medicine 08/10/24 documented as of this encounter Additional Source Comments The information contained in this document represents components of the legal health record. It is not the complete legal health record.[facility]
--- OUTSIDE RECORDS SUMMARY | 2025-02-25 11:55 | XMS_ITS | Encounter Summary ---
Author Organization [facility] Address [address] [facility] [address] [place] [address] Phone Care Team Providers Care Research Technician Name Role Phone Janell Wood MD Unavailable Pebbles Keith SCOURING TRAIN OPERATOR CHIEF Primary Care Provider Pebbles Keith NP Unavailable Pebbles Keith SCOURING TRAIN OPERATOR CHIEF Primary Care Provider [phone] Agustina Pino CNP Primary Care Provider Ana Al MBBS Unavailable [phone] Giana Cope SCOURING TRAIN OPERATOR CHIEF Primary Care Provider Encounter Details Date Type Department Care Team (Late st Contact Info) Description 10/24/2022 Ancillary Orders [facility] - Family Medicine [address] [place] [address] [phone] Pebbles Keith NP [address] [place] [address] [email or web address] Screening breast examination Social History Tobacco Use [...] Office Visit [facility] [address] [place] [address] [place] [address] Virgil Collins MD [address] [place] [address], [address] [place] [address] [email or web address] 04/12/2025 1:30 PM EDT Appointment [facility] - Internal Medicine [address] [place] [address] Agustina Pino CNP [address] [place] [address] [email or web address] 11/15/2025 2:00 PM EST Office Visit [facility] Clinical Center [address] [place] [address], [address] [place] [address] Manfred Torres MD, DSc [address] [place] [address], [address] [address] [email or web address] documented as of this encounter Results [...] recommendations. Pebbles Keith NP IMG MG EXAMS documented in this encounter [...] documented as of this encounter Care Teams Research Technician Relationship Specialty Start Date End Date Pebbles Keith NP [address] [place] [address] [email or web address] PCP - General Nurse Practitioner 08/06/22 12/16/23 Pebbles Keith NP [address] [place] [address] PCP - General Nurse Practitioner 12/17/23 07/18/24 Agustina Pino CNP [address] [place] [address] [email or web address] PCP - General Internal Medicine 07/19/24 02/21/25 Giana Cope, SCOURING TRAIN OPERATOR CHIEF [address] [place] [address] [email or web address] PCP - General Nurse Practitioner 02/22/25 Janell Wood MD [address] [place] [address] [email or web address] Insurance Assigned Provider 06/20/18 11/23/22 Pebbles Keith NP [address] [place] [phone] [email or web address] Insurance Assigned Provider 01/24/24 07/18/24 Ana Al MBBS 15 [place] [address] [email or web address] Pain Medicine 08/10/24 documented as of this encounter Additional Source Comments The information contained in this document represents components of the legal health record. It is not the complete legal health record.[facility]
--- OUTSIDE RECORDS SUMMARY | 2025-02-25 11:55 | XMS_ITS | Encounter Summary ---
Author Organization [facility] Address [address] [facility] [address] [facility] [address] [place] [address] Phone Care Team Providers Care Track Greaser Name Role Phone Pebbles Keith VALET SERVICE ATTENDANT Unavailable Pebbles Keith VALET SERVICE ATTENDANT Primary Care Provider Agustina Pino AIRLINE CUSTOMER SERVICE AGENT Primary Care Provider Ana Al MBBS Unavailable Giana Cope VALET SERVICE ATTENDANT Primary Care Provider Encounter Details Date Type Department Care Team (Late st Contact Info) Description 06/10/2024 Telephone [facility] Department of Neurosurgery at [place] [address] [facility] 1st [place] [address] Zunilda Davila [address] [place] [address] [email or web address] Social History Tobacco Use Types Packs/Day [...] high school, GED, job training, learning the Portuguese language, technical skills, or developing parenting skills)? [...] Description 03/25/2025 9:00 AM EDT Office Visit [facility] [address] [place] [address] [place] [address] Virgil Collins MD [address] [place] [address], [address] [address] 04/12/2025 1:30 PM EDT Appointment [facility] - Internal Medicine [address] [place] [address] Agustina Pino CNP [address] [place] [address] [email or web address] 11/15/2025 2:00 PM EST Office Visit [address], [address] [address] Manfred Torres MD, DSc 100 [facility], [address] [address] [email or web address] documented as of this encounter Visit Diagnoses Not on filedocumented in this encounter Additional Health Concerns Assessment Noted Time PHQ-9 Depression Total Score: 1 01/23/20 9:31 AM EDT PHQ-2 Depression Total Score: 1 01/23/20 9:31 AM EDT documented as of this encounter Care Teams Track Greaser Relationship Specialty Start Date End Date Pebbles Keith NP [address] [place] [address] PCP - General Nurse Practitioner 12/17/23 07/18/24 Agustina Pino CNP [address] [place] [address] [email or web address] PCP - General Internal Medicine 07/19/24 02/21/25 Giana Cope, VALET SERVICE ATTENDANT [address] [place] [address] [email or web address] PCP - General Nurse Practitioner 02/22/25 Pebbles Keith NP [address] [place] [phone] [email or web address] Insurance Assigned Provider 01/24/24 07/18/24 Ana Al MBBS [address] [place] [address] [email or web address] Pain Medicine 08/10/24 documented as of this encounter Additional Source Comments The information contained in this document represents components of the legal health record. It is not the complete legal health record.[facility]
--- OUTSIDE RECORDS SUMMARY | 2025-02-25 11:56 | XMS_ITS | Encounter Summary ---
Author Organization [facility] Address [address] [facility] [address] [place] [address] Phone Care Team Providers Care Box Blank Machine Feeder Name Role Phone Amrita Carranza Primary Care Provider + Janell Wood MD Unavailable [phone] Inge Olsen [facility] Unavailable [phone] Azra Blakely FICTION WRITER Primary Care Provider Pebbles Keith FICTION WRITER Primary Care Provider Pebbles Keith FICTION WRITER Unavailable [phone] Pebbles Keith FICTION WRITER Primary Care Provider [phone] Agustina Pino AQUATICS ASSISTANT DEPARTMENT HEAD Primary Care Provider [phone] Ana Al MBBS Unavailable [phone] Giana Cope FICTION WRITER Primary Care Provider Encounter Details Date Type Department Care Team (Late st Contact Info) Description 12/07/2020 Procedure Pass [facility], Ct Scan - [address] [address] Social History Tobacco Use Types Packs/Day Years [...] Office Visit [facility] [address] [place] [address] [place] [address] Virgil Collins MD [address] [facility], [address] [address] [email or web address] 04/12/2025 1:30 PM EDT Appointment [facility] - Internal Medicine [address] [place] [address] Agustina Pino CNP 57 [place] [address] [email or web address] 11/15/2025 2:00 PM EST Office Visit [address], [address] [place] [address] Manfred Torres MD, DSc [address] [place] [address] [email or web address] documented as of this encounter Visit Diagnoses Not on filedocumented in this encounter Additional Health Concerns Infection Onset Date Last Indicated Resolved Time CoV-Risk 10/30/2022 10/30/2022 11/10/2022 1:22 AM EST Assessment Noted Time PHQ-2 Depression Total Score: 0 11/01/19 10:53 AM EST documented as of this encounter Care Teams Box Blank Machine Feeder Relationship Specialty Start Date End Date Amrita Carranza PA [address] [place] [address] FRIDAUN[place] [address] [email or web address] PCP - General 11/21/17 12/18/20 Azra Blakely FICTION WRITER [address] [address] [email or web address] PCP - General Family Medicine 12/19/20 08/05/22 Pebbles Keith, [place] [address] [place] [address] [email or web address] PCP - General Nurse Practitioner 08/06/22 12/16/23 Pebbles Keith NP [address] [place] [address] PCP - General Nurse Practitioner 12/17/23 07/18/24 Agustina Pino CNP [address] [place] [address] PCP - General Internal Medicine 07/19/24 02/21/25 Giana Cope, MT [address] [place] [address] [email or web address] PCP - General Nurse Practitioner 02/22/25 Janell Wood MD [address] [place] [address] [email or web address] Insurance Assigned Provider 06/20/18 11/23/22 Inge Olesn, [address] [address] [email or web address] Social Work 10/04/19 06/04/21 Pebbles Keith NP [address] [place] [phone] [email or web address] Insurance Assigned Provider 01/24/24 07/18/24 Ana Al MBBS [address] [place] [address] [email or web address] Pain Medicine 08/10/24 documented as of this encounter Additional Source Comments The information contained in this document represents components of the legal health record. It is not the complete legal health record.[facility]
--- OUTSIDE RECORDS SUMMARY | 2025-02-25 11:56 | XMS_ITS | Encounter Summary ---
Author Organization [facility] Address [address] [facility] [address] [place] [address] Phone Care Team Providers Care Button Machine Operator Name Role Phone Pebbles Keith HYDROMETALLURGICAL ENGINEER Unavailable [phone] Pebbles Keith HYDROMETALLURGICAL ENGINEER Primary Care Provider Agustina Pino PNEUMATIC PRESS HAND Primary Care Provider [phone] Ana Al MBBS Unavailable Giana Cope HYDROMETALLURGICAL ENGINEER Primary Care Provider Encounter Details Date Type Department Care Team (Late st Contact Info) Description 12/17/2023 Procedure Pass [facility] Periop 57 [place] [address] Social History Tobacco Use Types Packs/Day Years [...] Office Visit [facility] [address] [place] [address] [place] [address] Virgil Collins MD [address] [place] [address], [address] [address] 04/12/2025 1:30 PM EDT Appointment [facility] - Internal Medicine [address] [place] [address] Agustina Pino CNP [address] [place] [address] 11/15/2025 2:00 PM EST Office Visit [address], [address] [place] [address] Manfred Torres MD, DSc [address] [place] [address], [facility] 140 [place] [address] [email or web address] documented as of this encounter Visit Diagnoses Not on filedocumented in this encounter Additional Health Concerns Assessment Noted Time PHQ-2 Depression Total Score: 0 08/03/20 22 1:42 PM EDT documented as of this encounter Care Teams Button Machine Operator Relationship Specialty Start Date End Date Pebbles Keith NP [address] [place] [address] PCP - General Nurse Practitioner 12/17/23 07/18/24 Agustina Pino CNP [address] [place] [address] [email or web address] PCP - General Internal Medicine 07/19/24 02/21/25 Giana Cope, HYDROMETALLURGICAL ENGINEER [address] [place] [address] [email or web address] PCP - General Nurse Practitioner 02/22/25 Pebbles Keith NP [address] [place] [phone] [email or web address] Insurance Assigned Provider 01/24/24 07/18/24 Ana Al MBBS [address] [place] [address] [email or web address] u Pain Medicine 08/10/24 documented as of this encounter Additional Source Comments The information contained in this document represents components of the legal health record. It is not the complete legal health record.[facility]
--- OUTSIDE RECORDS SUMMARY | 2025-02-25 11:56 | XMS_ITS | Clinical Summary ---
Author Organization [facility] Address [address] [place] [address] Phone Care Team Providers Care Securities Adviser Name Role Phone Ana AlBS Unavailable [phone] Giana Cope CHILD LIFE THERAPIST Primary Care Provider Allergies Active Allergy Reactions Criticality Noted Date [...] 3 capsules by mouth daily. 10/20/2017 Active celecoxib (CELEBREX) 200 MG capsule Take 1 capsule (200 mg total) by mouth daily. 30 capsule 2 09/13/2024 Active traZODone (DESYREL) 50 MG tabletIndications:I nsomnia TAKE ONE OR TWO TABLETS BY MOUTH NIGHTLY NEEDED AT BEDTIME 180 tablet 1 01/25/2025 Active dextroamphetamine-a mphetamine (ADDERALL) 5 mg TabIndications:Atte ntion deficit hyperactivity disorder (ADHD), unspecified ADHD type Take 2 tablets in the morning and 1 tablet in the evening 90 tablet 01/28/2025 Active cyanocobalamin, vitamin B-12, 1000 MCG tablet Take 1,000 mcg by mouth. 07/29/2023 Active hydrALAZINE (APRESOLINE) 25 MG tablet Take 25 mg by mouth 3 (three) times a day. 01/27/2025 Active dextroamphetamine-a mphetamine (ADDERALL XR) 20 MG 24 hr capsule take one capsule by mouth every day in the morning 02/01/2025 Active levocetirizine (XYZAL) 5 MG tablet 07/29/2023 Activ e dextroamphetamine-a mphetamine (ADDERALL) 5 mg TabIndications:Atte ntion deficit hyperactivity disorder (ADHD), unspecified ADHD type Take 2 tablets in the morning and 1 tablet in the evening 90 tablet 12/28/2024 5 Discontinue d(Reorder) Active Problems Patient Care Coordination [...] pain management. Hopes to be seen with [facility] neurosurg provider off [place] for additional help. Does daily NSAID with celebrex- physical therapy and home stretching exercises. Anxiety and depression 11/15/2021 ADHD 05/30/2021 Assessment & Plan (06/27/2024 7:58 AM EDT): Has been on medication x 5-6 yrs with significant improvement in symptoms on medication. [place] Remains on same [...] where the scanning was done may be [facility] or [facility]. Patient believes she had last pelvic exam 2 years ago with PCP. Only significant finding was a retroverted uterus. Pelvic symptoms that seem to be unrelated to any bleeding, although exacerbated by her menses, may or may not be FIELD CONTRACTOR in etiology. GI symptoms, fibromyalgia, anxiety, constipation [...] Encounters Date Type Department Care Team Description 02/18/2025 Telephone [facility] FLORESN & Midwifery [address] [place] [address] [place] [address] Virgil Collins MD Results 02/16/2025 8:40 AM EDT Procedure visit [facility] TRAN & Midwifery [address] [place] [address] [place] [address] Virgil Collins MD High grade squamous intraepithelial neoplasia (Primary Dx) 02/16/2025 Transcribe Orders [facility] CHARITOGYN & Midwifery [address] [place] [address] [place] [id number] Raffi Herbert MD 02/10/2025 Transcribe Orders [facility] OBGYN & Midwifery [address] [place] [address] [place] [id number] Agustina Pino CNP Abnormal cervical Papanicolaou smear, unspecified abnormal pap finding (Primary Dx) 12/08/2024 11:30 AM EST Telemedicine [facility] Neurosurgery [address] [place] [address], 5th Floor, [address] [place] [address] Rupesh Cee CNP, DNP Pituitary lesion (Primary Dx) 12/02/2024 11:26 AM EST - 12/02/2024 11:59 PM EST Hospital Encounter [address] [place]nel[place] [address] Lita Galvez MD Discharge Disposition: Home or Self Care 12/04/2023 Procedure Pass [address] [place]nel[place] [address] from Last 3 Months Immunizations Name Administration [...] high school, GED, job training, learning the Malay language, technical skills, or developing parenting skills)? [...] Sign Reading Time Taken Comments Blood Pressure 140/74 02/16/2025 8:46 AM EDT Pulse 73 06/15/2024 9:11 AM EDT Temperature 37.2 ??C (98.9 ??F) 06/15/2024 9:11 AM ED T Respiratory Rate 16 06/11/2024 8:31 AM EDT Oxygen Saturation 98% 06/15/2024 9:11 AM EDT Inhaled Oxygen Concentration - - Weight 80.7 kg (178 lb) 02/16/2025 8:46 AM EDT Height 160 cm (5' 3 ) 02/16/2025 8:46 AM EDT Body Mass Index 31.53 02/16/2025 8:46 AM EDT Plan of Treatment Upcoming Encounters Date Type Department Care Team (Late st Contact Info) Description 03/25/2025 9:00 AM EDT Office Visit [facility] [address] [place] [address] Dr Ornelas, [place] [address] Virgil Collins MD [address] [place] [address], [address] [place] [address] [email or web address] 04/12/2025 1:30 PM EDT Appointment [facility] - Internal Medicine [address] [place] [address] Agustina Pino CNP [address] [place] [address] [email or web address] 11/15/2025 2:00 PM EST Office Visit [facility] Clinical Center [address] [place] [address], [address] [place] [address] Manfred Torres MD, DSc [address] [facility], [facility] 140 [place] [address] [email or web address] Health Maintenance Due Date Last Done [...] Completed 07/24/2024, , 11/30/2020, Additional history exists SMOKING STATUS SCREENING (Once After 26 Yrs) Completed 02/16/2025 HEPATITIS A VACCINES Aged Out No long er eligible based on patient's age to complete this topic HIB VACCINES Aged Out No longer eligi ble based on patient's age to complete this topic MENINGOCOCCAL VACCINES (ACWY) Aged Out No longer eligible based on patient's age to complete this topic Medical Devices Implanted Type Area Geophysical Observer Device Identifier Shelf Expiration Date Model / Serial / Lot Posterior Cervical Hardware [place] 4.75mm Peek Knotless [place] System Implanted:Qty : 2 on 05/02/2023 by Marco Godoy MD at [facility] Right: Shoulder [id number] 06/19/2024 / / [id number] Procedures Procedure Name Priority Date/Time Associated Diagnosis Comments ANATOMIC PATHOLOGY Routine 02/16/2025 12 :00 AM EDT MRI BRAIN (PITUITARY) WITH AND WITHOUT CONTRAST Routine 12/02/2024 12:26 PM EST Benign neoplasm of pituitary gland and craniopharyngeal duct LIPID PANEL Routine 02/02/2024 8:10 AM EDT Screening for cholesterol level PAP TEST Routine 01/23/2024 12:00 AM EDT BI MAMMOGRAM SCREENING WITH TOMOSYNTHESIS WITH CAD (BILATERAL) Routine 11/14/2023 3:55 PM EST Screening breast examination from Last 3 Months or Most Recently Relevant to Health Maintenance Results * Anatomic Pathology (02/16/2025 12:00 AM EDT) 02/16/2025 02/16/2025 3:2 7 PM EDT Narrative SEE NARRATIVE - 02/17/2025 4:12 PM EDT [address] [address] Hardwood Floor Installation Helper: Sudhir Shook MD ?? Surgical Pathology Report FINAL PATHOLOGIC DIAGNOSIS: A. CERVIX AT 12 O'CLOCK, BIOPSY: ?? Benign squamous mucosa. Negative for dysplasia. B. CERVIX AT 6 O'CLOCK, BIOPSY: Benign squamous mucosa. Negative for dysplasia. C. ENDOCERVICAL CURETTINGS: Detached strips of reactive squamous epithelium. Negative for dysplasia. Note: No recent cervical smears are present in our files. Electronically Signed Out By Holly Puri MD By his/her signature above, the pathologist listed as making the Final Diagnosis certifies that he/she has personally reviewed this case and confirmed or corrected the diagnosis. CLINICAL HISTORY High-grade squamous intraepithelial neoplasia [D09.9] SPECIMENS SUBMITTED: A: CERVIX AT 12 O'CLOCK, BIOPSY B: CERVIX AT 6 O'CLOCK, BIOPSY C: ENDOCERVICAL CURETTINGS GROSS DESCRIPTION A. CERVIX AT 12 O'CLOCK, BIOPSY: Received in formalin is a 0.2 x 0.2 x 0.2 cm irregular portion of muro-pink soft tissue which is submitted in toto in single cassette labeled A1. B. CERVIX AT 6 O'CLOCK, BIOPSY: ??Received in formalin is a 0.3 x 0.2 x 0.1 cm irregular portion of muro-pink soft tissue which is submitted in toto in single cassette labeled B1. C. ENDOCERVICAL CURETTINGS: Received in formalin is a scant amount of muro-pink soft tissue which is entirely filtered into a single cassette labeled C1. Grossed by: ROMANA Quiñonez, ALBERTINA(ASCP) [id number] ??02/16/2025 Grossing Staff: ??[id number] Patient Name: HOLLY ANDERSON : 1965 (Age: 59) Sex: F Institution: [facility] Location: [facility] Date of Operation: 02/16/2025 Date of Reported: 02/17/2025 16:12 Results To: Virgil Pino NP Virgil Collins MD PATHOLOGY ORDERA BLES SEE NARRATIVE * MRI BRAIN (PITUITARY) WITH AND WITHOUT [...] No acute intracranial abnormality. Lita Galvez MD IMG MR HEAD/NECK * (ABNORMAL) Lipid panel (02/02/2024 8:10 AM EDT) HDL 72 35 - 100 mg/dL [facility] CHOLESTEROL 216(H) <200 mg/dL [facility] TRIGLYCERIDES 111 40 - 150 mg/dL [facility] LDL 122 50 - 129 mg/dL [facility] CARDIAC RISK RATIO 3.0 0.0 - 5.0 [facility] NON-HDL CHOLESTEROL 144 mg/dL [facility] Comment:NCEP ATP III guideli maría elena suggest a non-HDL cholesterol goal 30 mg/dl higher than the patient-specific LDL goal. 02/02/2024 8:10 AM EDT 02/02/2024 1:12 PM EDT Pebbles Keith NP LAB BLOOD ORDERABLES [facility] [address] [place] [address] * (ABNORMAL) Pap Test (01/23/2024 12:00 AM EDT) 01/23/2024 01/27/2024 11: 04 AM EDT Narrative SEE NARRATIVE - 02/16/2024 6:08 [place] [address] ?? FIELD CONTRACTOR Cytology Report Patient Name: ??HOLLY ANDERSON : ??1965 (Age: 58) Sex: ??F Institution: ??[facility] Date of Collection: ??01/23/2024 Date of Reported: ??02/16/2024 18:08 Results to: Nena Keith NP FINAL DIAGNOSIS A. ??CERVICAL, LIQUID BASED SPECIMEN: SPECIMEN ADEQUACY: Satisfactory for evaluation. INTERPRETATION: EPITHELIAL CELL ABNORMALITY - SQUAMOUS. Low grade squamous intraepithelial lesion. ADDITIONAL INFORMATION: This specimen was pre-screened using the ThinPrep Imaging System. ? Electronically Signed Out By: ??Karan Medley MD, PHD Zunilda Castillo [facility] (ASCP) MB By his/her signature above, the [...] 59, 66, 68) Note: Testing performed by Verdiemlarity HR-HPV analysis. ??Clinical correlation is advised. ??This HPV test was performed at [facility], [address] [place] [address]. This test has been FDA approved for both SurePath and ThinPrep cervical cytology specimens. The accuracy and precision of this test for all other specimen sources has been verified in the Cytopathology Laboratory of the [facility] and has not been cleared or [...] Advance Directives For more information, please contact: [phone] (9AM - 5PM Mala/[facility], Friday-Friday) * Full Code (Latest Code Status on File) Date Activated Date Inactivated Comments 05/02/2023 7:37 AM Question Answer Comments Code Status Confirmed With: Patient * Full Code (Presumed) Date Activated Date Inactivated Comments 08/17/2018 1:04 PM 08/17/2018 7:16 PM Care Teams Securities Adviser Relationship Specialty Start Date End Date Giana Cope NP [address] [facility] 1 [place] [address] [email or web address] PCP - General Nurse Practitioner 02/22/25 Ana Al MBBS 15 [place] [address] [email or web address] Pain Medicine 08/10/24 Additional Source Comments The information contained in this document represents components of the legal health record. It is not the complete legal health record.[facility]
--- OUTSIDE RECORDS SUMMARY | 2025-02-25 11:56 | XMS_ITS | Encounter Summary ---
Author Organization [facility] Address [address] [place] [address] Phone Care Team Providers Care Fish Hatchery Supervisor Name Role Phone Pebbles Keith TECHNICAL DOCUMENT WRITER Primary Care Provider Pebbles Keith TECHNICAL DOCUMENT WRITER Unavailable Pebbles Keith TECHNICAL DOCUMENT WRITER Primary Care Provider [phone] Agustina Pino SWAGE TENDER Primary Care Provider [phone] Ana Al MBBS Unavailable Giana Cope TECHNICAL DOCUMENT WRITER Primary Care Provider Encounter Details Date Type Department Care Team (Late st Contact Info) Description 12/04/2023 Procedure Pass [facility], [address] [place] [address] Social History Tobacco Use Types Packs/Day Years [...] Office Visit [facility] [address] [place] [address] [place] [address] Virgil Collins MD [address] [place] [address] [email or web address] 04/12/2025 1:30 PM EDT Appointment [facility] - Internal Medicine [address] [place] [address] Agustina Pino CNP [address] [place] [address] [email or web address] 11/15/2025 2:00 PM EST Office Visit [facility] Center [address] [place] [address], [address] [address] Manfred Torres MD, DSc [address] [place] [address], [address] [address] [email or web address] documented as of this encounter Visit Diagnoses Not on filedocumented in this encounter Additional Health Concerns Assessment Noted Time PHQ-9 Depression Total Score: 1 01/23/20 9:31 AM EDT PHQ-2 Depression Total Score: 0 06/14/20 10:52 AM EDT documented as of this encounter Care Teams Fish Hatchery Supervisor Relationship Specialty Start Date End Date Pebbles Keith NP [email or web address] PCP - General Nurse Practitioner 08/06/22 12/16/23 Pebbles Keith, [place] [address] [place] [address] PCP - General Nurse Practitioner 12/17/23 07/18/24 Agustina Pino SWAGE TENDER [address] [place] [address] PCP - General Internal Medicine 07/19/24 02/21/25 Giana Cope NP [address] [place] [address] [email or web address] PCP - General Nurse Practitioner 02/22/25 Pebbles Keith NP [address] [place] [phone] Insurance Assigned Provider 01/24/24 07/18/24 Ana Al MBBS [address] [place] [address] [email or web address] Pain Medicine 08/10/24 documented as of this encounter Additional Source Comments The information contained in this document represents components of the legal health record. It is not the complete legal health record.[facility]
--- OUTSIDE RECORDS SUMMARY | 2025-02-25 11:56 | XMS_ITS | Encounter Summary ---
Author Organization [facility] Address [address] [place] [address] Phone Care Team Providers Care Die Repairer Trimmer Dies Name Role Phone Pebbles Keith DATA COLLECTOR Primary Care Provider Pebbles Keith DATA COLLECTOR Unavailable Pebbles Keith DATA COLLECTOR Primary Care Provider [phone] Agustina Pino DIRECTOR OF HOME HEALTH SERVICES Primary Care Provider Ana Al MBBS Unavailable Giana Cope DATA COLLECTOR Primary Care Provider Encounter Details Date Type Department Care Team (Late st Contact Info) Description 07/03/2023 Procedure Pass [facility] Imaging - MR [address] [place] [address] Social History Tobacco Use Types Packs/Day Years [...] Office Visit [facility] [address] [place] [address] [place] [address] Virgil Collins MD [address] [place] [address] [email or web address] 04/12/2025 1:30 PM EDT Appointment [facility] - Internal Medicine [address] [place] [address] Agustina Pino, DIRECTOR OF HOME HEALTH SERVICES 57 [place] [address] [email or web address] 11/15/2025 2:00 PM EST Office Visit [facility] Clinical Center [address] [place] [address], [facility] 140 [place] [address] Manfred Torres MD, DSc [address] [facility], [address] [place] [address] [email or web address] documented as of this encounter Visit Diagnoses Not on filedocumented in this encounter Additional Health Concerns Assessment Noted Time PHQ-2 Depression Total Score: 0 08/03/20 22 1:42 PM EDT documented as of this encounter Care Teams Die Repairer Trimmer Dies Relationship Specialty Start Date End Date Pebbles Keith NP PCP - General Nurse Practitioner 08/06/22 12/16/23 Pebbles Keith, [place] [address] [place] [address] [email or web address] PCP - General Nurse Practitioner 12/17/23 07/18/24 Agustina Pino DIRECTOR OF HOME HEALTH SERVICES [address] [place] [address] [email or web address] PCP - General Internal Medicine 07/19/24 02/21/25 Giana Cope, [place] [address] [place] [address] [email or web address] PCP - General Nurse Practitioner 02/22/25 Pebbles Keith NP [address] [place] [phone] [email or web address] Insurance Assigned Provider 01/24/24 07/18/24 Ana Al MBBS [address] [place] [address] [email or web address] Pain Medicine 08/10/24 documented as of this encounter Additional Source Comments The information contained in this document represents components of the legal health record. It is not the complete legal health record.[facility]
--- OUTSIDE RECORDS SUMMARY | 2025-02-25 11:56 | XMS_ITS | Continuity of Care Document ---
Author Organization [facility] Address [address] [place] [address] [address] [place], [place] Phone [phone] Care Team Providers Care Armored Transport Service Manager Name Role Phone Janell Wood Care Team [...]
--- OUTSIDE RECORDS SUMMARY | 2025-02-25 11:56 | XMS_ITS | Encounter Summary ---
Author Organization [facility] Address [address] [place] [address] Phone Care Team Providers Care Transformation Lead Name Role Phone Pebbles Keith SALARY AND WAGE ADMINISTRATOR Primary Care Provider Pebbles Keith SALARY AND WAGE ADMINISTRATOR Unavailable Pebbles Keith SALARY AND WAGE ADMINISTRATOR Primary Care Provider Agustina Pino MUSIC EDUCATOR Primary Care Provider [phone] Ana Al MBBS Unavailable Giana Cope SALARY AND WAGE ADMINISTRATOR Primary Care Provider Encounter Details Date Type Department Care Team (Late st Contact Info) Description 12/15/2023 Ancillary Orders [facility] Imaging - RF 57 [place] [address] Nina Fay MD, PhD [address] [place] [address] [email or web address] Pain (Primary Dx) Social History Tobacco Use [...] Office Visit [facility] [address] [place] [address] [place] [address] Virgil Collins MD [address] [place] [address], [address] [address] [email or web address] 04/12/2025 1:30 PM EDT Appointment [facility] - Internal Medicine [address] [place] [address] Agustina Pino CNP [address] [place] [address] [email or web address] 11/15/2025 2:00 PM EST Office Visit [address], [address] [place] [address] Manfred Torres MD, DSc [address] [place] [address], [address] [place] [address] [email or web address] Pending Results Name Type Priority Associated Diagnoses [...] documented as of this encounter Care Teams Transformation Lead Relationship Specialty Start Date End Date Pebbles Keith NP PCP - General Nurse Practitioner 08/06/22 12/16/23 Pebbles Keith NP [address] [place] [address] PCP - General Nurse Practitioner 12/17/23 07/18/24 Agustina Pino CNP [address] [place] [address] PCP - General Internal Medicine 07/19/24 02/21/25 Giana Cope NP [address] [place] [address] [email or web address] PCP - General Nurse Practitioner 02/22/25 Pebbles Keith NP [address] [place] [phone] [email or web address] Insurance Assigned Provider 01/24/24 07/18/24 Ana Al MBBS 15 [place] [address] [email or web address] Pain Medicine 08/10/24 documented as of this encounter Additional Source Comments The information contained in this document represents components of the legal health record. It is not the complete legal health record.[facility]
--- OUTSIDE RECORDS SUMMARY | 2025-02-25 11:56 | XMS_ITS | Encounter Summary ---
Author Organization [facility] Address [address] [address] [facility] [address] [place] [address] Phone Care Team Providers Care Armature Inspector Name Role Phone Pebbles Keith OPTIMIZATION MANAGER Primary Care Provider Pebbles Keith OPTIMIZATION MANAGER Unavailable Pebbles Keith OPTIMIZATION MANAGER Primary Care Provider [phone] Agustina Pino CONVERTIBLE SOFA BEDSPRING TESTER Primary Care Provider Ana Al MBBS Unavailable [phone] Giana Cope OPTIMIZATION MANAGER Primary Care Provider Encounter Details Date Type Department Care Team (Late st Contact Info) Description 05/02/2023 Procedure Pass [facility] Periop [address] [place] [address] Social History Tobacco Use Types Packs/Day Years [...] Office Visit [facility] [address] [place] [address] [place] [address] Virgil Collins MD [address] [place] [address], [address] [address] 04/12/2025 1:30 PM EDT Appointment [facility] - Internal Medicine 57 [place] [address] Agustina Pino CNP 57 [place] [address] [email or web address] 11/15/2025 2:00 PM EST Office Visit [address], [address] [place] [address] Manfred Torres MD, DSc [address] [place] [address], [address] [place] [address] [email or web address] documented as of this encounter Visit Diagnoses Not on filedocumented in this encounter Additional Health Concerns Assessment Noted Time PHQ-2 Depression Total Score: 0 08/03/20 22 1:42 PM EDT documented as of this encounter Care Teams Armature Inspector Relationship Specialty Start Date End Date Pebbles Keith NP PCP - General Nurse Practitioner 08/06/22 12/16/23 Pebbles Keith NP [address] [place] [address] [email or web address] PCP - General Nurse Practitioner 12/17/23 07/18/24 Agustina Pino CONVERTIBLE SOFA BEDSPRING TESTER [address] [place] [address] [email or web address] PCP - General Internal Medicine 07/19/24 02/21/25 Giana Cope NP [address] [place] [address] [email or web address] PCP - General Nurse Practitioner 02/22/25 Pebbles Keith, OPTIMIZATION MANAGER [address] [place] [phone] [email or web address] Insurance Assigned Provider 01/24/24 07/18/24 Ana Al MBBS 15 [place] [address] [email or web address] Medicine 08/10/24 documented as of this encounter Additional Source Comments The information contained in this document represents components of the legal health record. It is not the complete legal health record.[facility]
--- OUTSIDE RECORDS SUMMARY | 2025-02-25 11:56 | XMS_ITS | Encounter Summary ---
Author Organization [facility] Address [address] [place] [address] Phone Care Team Providers Care Machine Biller Name Role Phone Agustina Pino BEREAVEMENT COORDINATOR Primary Care Provider Ana Al MBBS Unavailable [phone] Giana Cope NP Primary Care Provider Reason for Visit * Reason Onset Date Comments Results 02/18/2025 Encounter Details Date Type Department Care Team (Late st Contact Info) Description 02/18/2025 Telephone [facility] [address] [place] [address] [place] [address] Virgil Collins MD [address], [address] [place] [address] [email or web address] Results Social History Tobacco Use Types Packs/Day Years [...] high school, GED, job training, learning the [place] language, technical skills, or developing parenting skills)? [...] PM EDT documented as of this encounter Progress Notes * Jason Riojas - 02/22/2025 11:13 AM EDT Leep 03/25 * Jason Riojas - 02/18/2025 4:06 PM EDT LVM to call back to schedule Leep with JE * Nancy Edwards - 02/18/2025 1:21 PM EDT The patient lvm returning Dr. Collins's call. * Virgil Collins MD - 02/18/2025 11:37 AM EDT Tried calling patient to discuss colpo results - no answer, v/m left inviting her to call back Colpo results - no dysplasia Given pap HSIL, HPV NR (previous LSIL) - would like to offer patient a LEEP procedure given this discordance. This was discussed at the colpo as a possibility if results came back normal documented in this encounter Plan of Treatment Upcoming Encounters Date Type Department Care Team (Late st Contact Info) Description 03/25/2025 9:00 AM EDT Office Visit [facility] [address] [place] [address] [place] [address] Virgil Collins MD [address] [place] [address], [address] [place] [address] 04/12/2025 1:30 PM EDT Appointment [facility] Medicine [address] [place] [address] Agustina Pino BEREAVEMENT COORDINATOR [address] [place] [address] [email or web address] 11/15/2025 2:00 PM EST Office Visit [facility] [address], [address] [place] [address] Manfred Torres MD, DSc [address], [place] [facility] [address] [place] [address] [email or web address] documented as of this encounter Visit Diagnoses Not on filedocumented in this encounter Additional Health Concerns Assessment Noted Time PHQ-9 Depression Total Score: 1 01/23/20 9:31 AM EDT PHQ-2 Depression Total Score: 0 06/14/20 10:52 AM EDT documented as of this encounter Care Teams Machine Biller Relationship Specialty Start Date End Date Agustina Pino, BEREAVEMENT COORDINATOR [address] [place] [address] [email or web address] PCP - General Internal Medicine 07/19/24 02/21/25 Giana Cope NP [address] [place] [email or web address] PCP - General Nurse Practitioner 02/22/25 Ana Al MBBS [address] [place] [address] [email or web address] 08/10/24 documented as of this encounter Additional Source Comments The information contained in this document represents components of the legal health record. It is not the complete legal health record.[facility]
== END 2025-02-25 12:09 | disposition home or self-care (01) ==
LOC: HO.HNS 11:26
PROVIDERS: Visit Provider Physician Assistant
DX: M54.16 Radiculopathy, lumbar region (principal)
CPT/HCPCS: 99024

== ENCOUNTER → 2025-02-25 11:26 | Outpatient (BNVA) | payer BC, SELFPAY | PROVIDERS: Visit Provider Physician Assistant ==

== ENCOUNTER 2025-05-04 09:57 | Outpatient (RCR) | payer BC, SELFPAY ==
--- NOTE | 2025-03-11 13:24 | MHC.PT.EP ---
[facility] [place] [facility] [place] Office [place] Office [address] Sonya Dunham [address] [phone] F: [phone] F: [phone] F: [phone] F: [phone] Physical Therapy Plan of Care Date of Evaluation: 03/11/25 Date of Surgery: 12/24/24 Diagnosis: LBP with radiculopathy, Preoperative Dx: L4-5 spinal stenosis/lateral recess stenosis/neural foraminal stenosis s/p L4-5 Laminotomy, Partial facetectomy and foraminotomy (DOS: 12/24/24, Dr. Modi) RS Assessment: Holly is a pleasant, motivated 59 y.o. female who is referred to PT by Fran Nazario [facility] with Dx of Preoperative Diagnosis: L4-5 spinal stenosis/lateral recess stenosis/neural foraminal stenosis. Operation: L4-5 Laminotomy, Partial facetectomy and foraminotomy performed on 12/24/[address] Modi. Patient impairments include pain, intermittent radicular sxs, weakness in abdominal musculature/sore, glutes, limited lumbar ROM, antalgic gait, reduced R diaphragmatic excursion with Hx of multiple abdominal surgeries. Patient current functional limitations are driving standard car, walking up driveway (hill), prolonged walking and standing, ascend/descend stairs, carrying items/groceries. Patient will benefit from skilled PT to address aforementioned impairments and functional limitations to meet established goals. Frequency and Duration: The patient will be seen 2x/week for 4 weeks Short Term Goals: 2 weeks Patient demonstrates consistency and independence with HEP to self manage symptoms Editing Internship Goals: 4 weeks Patient presents with increased L glute med strength 4+/5 to be able to walk up driveway with good stability and no increase in back sxs. Patient presents with increased core strength with progression of TA exercises to be able to squat and lift 10# for laundry. Treatment Plan: Modalities to reduce pain, spasms and effusion. Manual therapy to restore motion and function. Therapeutic exercise to improve strength and flexibility. Neuromuscular re-education for posture and balance. Therapeutic activities to return to functional activities of daily living. Electronically signed by: Cortez Fields PT, DPT Please sign and return to therapist. Thank you for your referral.
--- NOTE | 2025-05-04 13:19 | MHC.PT.DC ---
[facility] [place] Office [place] [facility] [place] [facility] [address] Sonya Dunham [address] [phone] F: [phone] F: [phone] F: [phone] F: [phone] Physical Therapy Discharge Report Diagnosis: LBP with radiculopathy, Preoperative Dx: L4-5 spinal stenosis/lateral recess stenosis/neural foraminal stenosis s/p L4-5 Laminotomy, Partial facetectomy and foraminotomy (DOS: 12/24/24, Dr. Modi) RS Date of Surgery: 12/24/24 Date of Evaluation: 03/11/25 Date of Discharge: 05/04/25 Treatments to Date: 9 Cancellations to Date: No Shows to Date: Discharge Status: Achieved Goals Improved Function Independent with HEP Discharge Summary: Holly has been consistent with home exercises. She demonstrates improved lumbar ROM, increased core and hip strength. She is able to perform more activities at home with less pain than in the past. She is appropriate for discharge from PT and can self mange symptoms with home program. Electronically signed by: Cortez Fields, PT, DPT Please sign and return to therapist. Thank you for your referral.
== END 2025-05-04 13:19 | disposition home or self-care (01) ==
LOC: HO.PT 09:57
PROVIDERS: PCP Nurse Practitioner Family; Visit Provider Physician Assistant
DX: M54.16 Radiculopathy, lumbar region (principal); Z98.890 Other specified postprocedural states
CPT/HCPCS: 97110; 97140; 97162; 97163; 97530; 97535